=== PATIENT | male | born 1940 | race Caucasian/White ===

== ENCOUNTER 2018-05-31 10:34 | Outpatient (CLI) | payer MEDICARE, OTHER, SELFPAY ==
--- NOTE | 2018-05-31 11:25 | DI.RAD_ITS ---
SYMPTOM/DIAGNOSIS: LOW BACK PAIN, M54.5, LT HIP PAIN, M25.552 LUMBAR SPINE: There is a transition vertebral body at the lumbosacral junction. There appears to be a small rib on the left side of T 12. There is severe narrowing of the L 1-2 through L 3-4 disc and moderate narrowing of the L 4-5 disc space. Endplate osteophytes are seen at these levels as well. Facet degenerative changes are present, greatest at L 4-5. There is a minimal degenerative scoliosis. IMPRESSION: Severe degenerative disc changes from L 1-2 through L 3-4. PELVIS AND LEFT HIP: There is mild bilateral superior hip joint space narrowing and minimal jonatan- articular spurring. Mild spurring is also seen at the SI joints. IMPRESSION: Mild degenerative changes.
[2018-05-31 13:09] LABS: ALT 30 U/L (12-78); AST 21 U/L (15-37); Albumin 3.6 g/dL (3.4-5.0); Alkaline Phosphatase 69 U/L (46-116); Anion Gap 7.9 mmol/L (3-11); BUN 18 mg/dL (7-18); Bilirubin, Total 0.3 mg/dL (0.2-1.0); CO2 29.1 mmol/L (21.0-32.0); CREATININE 1.27 mg/dL (0.70-1.30); Calcium 9.7 mg/dL (8.5-10.1); Chloride 104 mmol/L (98-107); Cholesterol 149 mg/dL (50-200); Estimated GFR 54.99 (mL/min/1.73m2); Glucose 100 mg/dL (70-100); HDL Cholesterol 42 mg/dL (40-60); LDL CHOLESTEROL 77 mg/dL (<100); Potassium 4.4 mmol/L (3.5-5.1); Sodium 141 mmol/L (136-145); Total Protein 6.8 g/dL (6.4-8.2); Triglyceride 179 mg/dL (30-150)
== END 2018-05-31 10:54 ==
PROVIDERS: PCP Family Medicine; Visit Provider Family Medicine
DX: I10 Essential (primary) hypertension (principal); M54.5 Low back pain; M51.36 Other intervertebral disc degeneration, lumbar region; M25.552 Pain in left hip; M16.12 Unilateral primary osteoarthritis, left hip
CPT/HCPCS: 36415; 80053; 80061; 83721; 72110; 73502

== ENCOUNTER 2019-05-27 08:29 | Emergency (ER) | payer MEDICARE, OTHER, SELFPAY ==
[2019-05-27 08:35] VITALS: BP 135/90; PULSE 85; RESP 18; TEMP 36.6; O2SAT 94
--- NOTE | 2019-05-27 08:54 | DI.CT_ITS ---
EXAM: CT ABDOMEN PELVIS W CLINICAL HISTORY: abd pain, lower quadrants bilateral TECHNIQUE: Images were performed from the lung bases through the ischial tuberosities after IV and o ral contrast. COMPARISON: ABD PELVIS WITH CONTRAST from 11/12/2015 FINDINGS: There is again noted to be wall thickening in the sigmoid as well as stranding in the surrounding fa t. Numerous diverticula are again noted. Findings are consistent with diverticulitis, in a similar location to the previous exam. There is no evidence of obstruction. There is a normal quantity of s tool. The small bowel is unremarkable. The lungs bases show dependent changes. There is a question of a small hiatal hernia. The liver shows mild fatty infiltration. Stones are noted in the gallbla dder. There is no gallbladder distention or wall thickening. The spleen, pancreas and adrenals are unremarkable. Multiple bilateral renal cysts are again noted. There is a nonobstructing stone in th e mid left kidney. The prostate is enlarged. The bladder is only mildly distended and there may be some wall thickening. There has been a previous left inguinal hernia repair. Degenerative changes a re seen in the spine. IMPRESSION: Sigmoid diverticulitis. No evidence of abscess or perforation.
--- NOTE | 2019-05-27 08:56 | ED.GENADUL_ITS ---
Discharge Plan Disposition Patient Disposition: HOME Condition: Stable Discharge Details Chief Complaint: Abd Prob Clinical Impression: Diverticulitis of sigmoid colon Primary Care Provider: Delfina Lopes ED Provider: Nikita Brink Home Meds and New Rx's Prescriptions: New amoxicillin-pot clavulanate [Augmentin] 875-125 mg tablet 1 tab PO Q12H Qty: 20 RF: 0 Continued fortifeye 1 tab tablet PO DAILY AM RF: 0 aspirin [Aspir-81] 81 MG tablet,delayed release (DR/EC) 81 mg PO DAILY RF: 0 cholecalciferol (vitamin D3) 1,000 UNIT tablet 1,000 unit PO DAILY RF: 0 cyanocobalamin (vitamin B-12) [Vitamin B-12] 500 MCG tablet 500 mcg PO DAILY RF: 0 citalopram 20 mg tablet 20 mg PO DAILY Qty: 90 RF: 11 gabapentin 300 mg capsule 300 mg PO BID Qty: 180 RF: 12 lisinopril 5 mg tablet 5 mg PO DAILY Qty: 90 RF: 12 omeprazole 20 mg capsule,delayed release(DR/EC) 20 mg PO DAILY Qty: 90 RF: 4 trazodone 50 mg tablet 100 mg PO DAILY Qty: 180 RF: 11 sennosides [Senokot] 1 TAB tablet 2 tab PO DAILY RF: 0 Discharge Instructions Instructions: Diverticulitis (ED), Diverticulitis Diet (ED) Additional Instructions: Take your medication as scheduled and return immediately to the emergency department for any nausea vomiting, fever, worsening of conditions. You may continue to take [id number] acetaminophen as needed for any further pain and discomfort and keep your appointment with your primary care provider for follow-up next week. You may slowly advance her diet as tolerated but make sure that you stay well-hydrated during her illness. You may take probiotics [id number] to help with any secondary diarrhea due to the antibiotic. Just take as directed on packaging. Referrals: Delfina Lpoes MD, [place] [Primary Care Provider] - 05/31/19 (Keep your appointment as scheduled) Discharge Data Discharge Date/Time-TO BE ENTERED AT DEPARTURE: 05/27/19 12:05 Medical Decision Making Patient presenting to the emergency department chief complaint of abdominal pain. Patient reports for the past 3 days he has had colicky but persistent abdominal pain that seems to be bilateral in the lower quadrants. Patient denies any nausea vomiting or diarrhea but does state some slight constipation with last good bowel movement 2 days ago and only a slight bowel movement yesterday. Patient denies any fever chills or other associated symptoms. Physical exam is positive for significant tenderness to the abdomen in the lower quadrants more so on the right than the left otherwise normal active bowel sounds in all quadrants, no CVA tenderness, clear lung sounds normal cardiac exam. Plan to check labs and CT image. Family states that patient has difficulty with narcotics at times and oversedation so plan to give low-dose of ketorolac for pain control pending results. Review of labs show a mild leukocytosis otherwise unremarkable CBC, patient does have slightly increased creatinine which is not significantly elevated from baseline otherwise nondiagnostic CMP. UA does show moderate blood and trace leukocyte esterase but no significant elevation of WBCs and patient is asymptomatic as far as any urinary symptoms so while culture was indicated by lab I do not feel that patient needs treatment for UTI at this time. Review of CT imaging and radiologist interpretation does show sigmoid diverticulitis. Review of previous visit from 2016 shows similar episode. Patient initially placed upon Flagyl and Bactrim which he failed treatment and returned and needed to be admitted. I did discuss admission with patient and at this time he would prefer to go home. During admission patient was given Zosyn and did well on that. Due to that patient placed upon Augmentin for 10 days. Close return precautions were discussed. Given patient allergy to Keflex patient was observed in emergency department after initial dose to make sure that no reactio ns occurred. Patient remained stable with no reaction so patient discharged. Patient states that he has a normally scheduled appointment with his primary care provider on Thursday which I feel is appropriate for follow-up and patient and family seem reasonable to return for worsening symptoms. After discussion of diagnosis and plan of care patient has no further needs, questions, or concerns and states clear understanding to return to the emergency department for any worsening symptoms. HPI General Mode of arrival: ambulatory . Date/Time Provider Initiated Documentation: 05/27/19 08:33 . Limitations to Documentation: no limitations . Information obtained by: patient and family . History of Present Illness 78 year old M presents to the emergency department with the chief complaint of Abdominal pain, described as severe, with intensity rated at 9. Quality is described as sharp, and is localized to the abdomen. Patient started experiencing this day(s) (3) and it has been constant and colicky. No relieving factors improve symptom(s), No exacerbating factors reported . Patient notes no other symptoms.. Related Data Home Medications Medication Instructions Recorded Confirmed aspirin [Aspir-81] 81 mg PO DAILY 11/26/12 05/27/19 cholecalciferol (vitamin D3) 1,000 unit PO DAILY 11/26/12 05/27/19 sennosides [Senokot] 2 tab PO DAILY 12/05/13 05/27/19 cyanocobalamin (vitamin B-12) 500 mcg PO DAILY 07/02/15 05/27/19 [Vitamin B-12] fortifeye PO DAILY AM 05/31/18 03/29/19 citalopram 20 mg tablet 20 mg PO DAILY #90 tab-cap 08/30/18 05/27/19 gabapentin 300 mg capsule 300 mg PO BID #180 tab-cap 08/30/18 05/27/19 lisinopril 5 mg tablet 5 mg PO DAILY #90 tab-cap 08/30/18 05/27/19 omeprazole 20 mg capsule,delayed 20 mg PO DAILY #90 tab 08/30/18 05/27/19 release trazodone 50 mg tablet 100 mg PO DAILY #180 tab-cap 08/30/18 05/27/19 amoxicillin-pot clavulanate 1 tab PO Q12H #20 tab 05/27/19 [Augmentin] Previous Rx's Medication Instructions Recorded citalopram 20 mg tablet 20 mg PO DAILY #90 tab-cap 08/30/18 gabapentin 300 mg capsule 300 mg PO BID #180 tab-cap 08/30/18 lisinopril 5 mg tablet 5 mg PO DAILY #90 tab-cap 08/30/18 omeprazole 20 mg capsule,delayed 20 mg PO DAILY #90 tab 08/30/18 release trazodone 50 mg tablet 100 mg PO DAILY #180 tab-cap 08/30/18 amoxicillin-pot clavulanate 1 tab PO Q12H #20 tab 05/27/19 [Augmentin] Allergies Allergy/AdvReac Type Severity Reaction Status Date / Time ciprofloxacin Allergy Intermediate Verified 05/27/19 08:38 cephalexin Allergy Mild Verified 05/27/19 08:38 ciclopirox Allergy Mild Verified 05/27/19 08:38 methylprednisolone Allergy Mild SKIN RASH Verified 05/27/19 08:38 oxaprozin Allergy Mild Verified 05/27/19 08:38 phenazopyridine Allergy Mild Verified 05/27/19 08:38 tamsulosin Allergy Mild Verified 05/27/19 08:38 hydrocortisone Allergy Unknown SKIN RASH Verified 05/27/19 08:38 latex Allergy Unknown Verified 05/27/19 08:38 Beta-Blockers AdvReac Unknown DEPRESSION Verified 05/27/19 08:38 (Beta-Adrenergic Bloc lanolin AdvReac Unknown Verified 05/27/19 08:38 tetracycline AdvReac Unknown YEAST Verified 05/27/19 08:38 INFECTIONS fluconazole AdvReac blisters Verified 05/27/19 08:38 General Stated Complaint: Abd Prob CARMITA: 3 Review of Systems Constitutional Constitutional: Denies chills, Denies fever(s) and Reports poor appetite Cardiovascular Cardiovascular: Denies chest pain and Denies dyspnea Respiratory Respiratory: Denies dyspnea Gastrointestinal Gastrointestinal: Reports as per HPI, Reports abdominal pain, Denies melena, Denies change in bowel habits, Reports constipation, Denies diarrhea, Denies nausea and Denies vomiting Genitourinary Genitourinary: Denies hematuria and Reports urinary frequency (At baseline) Integumentary/Breasts Skin/Breast: Denies rash PFSH Medical History Acute prostatitis (Resolved) elevated PSA-now normalized Anemia (Resolved) 07/09/96 Anxiety (Chronic) Cataract (Resolved) 02/26/15 Chest pain (Resolved) neg MPI 06/16 Dermatophytosis (Chronic) BX-neg. fungal; + spongiotic process + esinophils Diverticulosis of colon without diverticulitis (Chronic) SIGMOID (DR. ORQUIDEA MICHAEL) 12/29/11 Essential hypertension (Chronic 07/18/13) Hematuria (Resolved) unspecified renal cysts per CT; s/p cysto Insomnia, unspecified (Chronic 05/25/17) Intestinal obstruction (Resolved) Knee pain (Resolved) 10/01/15 Meralgia paraesthetica (Resolved) Peptic reflux disease (Chronic) H.H. Pneumonia due to infectious organism (Resolved) 08/31/17 unspecified unilaterality, unspecified part of lung Rib pain (Resolved) 07/09/05 after episode w/bull Vertigo (Resolved) Vitamin D deficiency (Resolved) 09/26/08 Surgical History Repair of inguinal hernia LEFT S/P inguinal hernia repair (Resolved) left Family History Mother , 93 Essential hypertension Father , 88 Heart disease Myocardial infarction Sister Breast cancer Paternal Grandfather Stroke Maternal Grandmother , OLD AGE at age 85. No problems noted. Paternal Grandmother Stroke Son No problems noted. Son No problems noted. Daughter No problems noted. Daughter No problems noted. Daughter No problems noted. Daughter No problems noted. Social History Smoking/Tobacco Use Status: Never Alcohol Intake: current Alcohol Intake frequency: a few times a month Drug use: Never Substance use type: does not use Caregiver/Support person: Yes Household members: spouse Housing: house Communication Needs: Language Barriers Do you need help understanding health information?: Always Pets and animals: No Sexually active: Yes Do you think of yourself as: straight/heterosexual Current gender identity: male What is your relationship status?: How often do you talk on the phone with friends or family?: never How often do you get together with friends or relatives?: once per week How often do you attend rastafarian or restoration services?: 4 or more times per year Do you belong to any clubs or organized social groups?: yes Panel score (0-1 are the most socially isolated patients): 3 What type of physical activity do you participate in: decline to answer Duration: 15-30 minutes/day Frequency: daily Vilma/Taoist: Orthodox Special vilma needs: No Seatbelt use: sometimes Helmet use: Yes Helmet use: always Drive intox or ride w/intox dinkey driver: No Do you feel safe at home: Yes Do you feel safe in your relationship?: Yes Exam Const General: cooperative Orientation: alert, awake and oriented x3 Resp Effort & Inspection: normal respiratory effort and able to speak in complete sentences Auscultation: clear to auscultation bilaterally Cardio Rate: regular rate Rhythm: regular rhythm Heart Sounds: S1 normal and S2 normal GI Palpation: soft, no hepatosplenomegaly, not firm, no guarding, no masses, no pulsatile masses, not rigid, no splenomegaly and tender in the RLQ Auscultation: normal bowel sounds Back/Spine/Pelvis Back: no CVA tenderness Neuro General: alert, awake, oriented x3, gait normal and moves all extremities Course Vital Signs Vital signs: Vital Signs Temperature 36.6 C 05/27/19 08:35 Pulse 85 05/27/19 08:35 Respiratory Rate 18 05/27/19 08:35 Blood Pressure 135/90 05/27/19 08:35 Pulse Oximetry 94 L 05/27/19 08:35 Temperature 36.6 C 05/27/19 08:35 Temperature Source Temporal Artery Scan 05/27/19 08:35 Pulse 85 05/27/19 08:35 Respiratory Rate 18 05/27/19 08:35 Respiratory Effort Non-Labored 05/27/19 08:35 Blood Pressure 135/90 05/27/19 08:35 Pulse Oximetry 94 L 05/27/19 08:35 Oxygen Delivery Method Room Air 05/27/19 08:35 Oxygen Flow Rate 0 05/27/19 08:35 Pain Level 9 05/27/19 08:35
[2019-05-27] MEDS: Omnipaque 350 MG/ML 50 ML BTL PO (08:59)
[2019-05-27] MEDS: Breeza Beverage 473 ML BTL PO ×2 (08:59→09:00)
[2019-05-27] MEDS: Ketorolac 15 MG/ML VIAL IVP (09:17)
[2019-05-27 09:26] LABS: Abs Immature Grans 0.04 k/cumm (0.0-0.09); Absolute Basophil Count 0.01 k/cumm (0.0-0.2); Absolute Lymphocyte Count 1.04 k/cumm (1.2-3.4); Absolute Monocyte Count 0.76 k/cumm (0.11-0.7); Basophils % 0.1; HCT 48.3 % (40.0-50.0); Immature Grans % 0.3; Lymphocytes % 9.1; Mean Corp. HGB Concentration 33.1 g/dL (32.0-36.0); Mean Corpuscular Hemoglobin 28.7 pg (27.0-33.0); Mean Corpuscular Volume 86.6 fL (80-95); Mean Platelet Volume 9.7 fL (8.0-11.0); Monocytes % 6.6; Neutrophils % 82.9; Platelet Count 259 x1000/uL (130-400); RBC 5.58 m/cumm (4.50-6.00); RBC Distribution Width 14.7 % (11.8-14.1); White Blood Cell Count 11.47 k/cumm (4.4-10.8)
[2019-05-27 09:28] LABS: Absolute Eosinophil Count 0.11 k/cumm (0.0-0.7); Absolute Neutrophil Count 9.51 k/cumm (1.2-6.7)
[2019-05-27 09:35] LABS: ALT 25 U/L (16-63); AST 15 U/L (15-37); Albumin 3.7 g/dL (3.4-5.0); Alkaline Phosphatase 77 U/L (46-116); Anion Gap 10.2 mmol/L (3-11); BUN 17 mg/dL (7-18); Bilirubin, Total 0.8 mg/dL (0.2-1.0); CO2 25.8 mmol/L (21.0-32.0); CREATININE 1.37 mg/dL (0.70-1.30); Calcium 9.4 mg/dL (8.5-10.1); Chloride 103 mmol/L (98-107); Estimated GFR 50.25 (mL/min/1.73m2); Glucose 107 mg/dL (70-100); Lipase 103 U/L (73-393); Sodium 139 mmol/L (136-145); Total Protein 7.4 g/dL (6.4-8.2)
[2019-05-27 09:39] LABS: Bilirubin Negative (Negative); Blood Moderate (Negative); Clarity Clear (Clear); Glucose Negative (Negative); Ketones Negative (Negative); Leukocyte Esterase Trace (Negative); Nitrite Negative (Negative); Urobilinogen 0.2 EU/dL (Up TO 0.2)
[2019-05-27 09:53] LABS: Epithelial Cells Negative HPF (Negative); Other Cells Few Yeast (Negative); WBC 0-2 HPF (0-5)
[2019-05-27 09:54] LABS: Bacteria Rare HPF (Negative); C & S Indicated? Yes; Casts Negative LPF (Negative); Crystals Negative HPF (Negative); Mucus Trace (Negative)
[2019-05-27] MEDS: Omnipaque 350 MG/ML 100 ML BTL IJ (10:39)
[2019-05-27 10:47] VITALS: BP 104/69; PULSE 70; TEMP 37; O2SAT 98
[2019-05-27] MEDS: Amoxicillin 875/Clav. 125 TAB PO (11:36)
[2019-05-27 12:03] VITALS: BP 134/85; PULSE 72; RESP 17; TEMP 36.6; O2SAT 93
== END 2019-05-27 12:05 | disposition home or self-care (01) ==
PROVIDERS: Emergency Provider Nurse Practitioner Family; PCP Family Medicine
DX: K57.32 Diverticulitis of large intestine without perforation or abscess without bleeding (principal)
CPT/HCPCS: 80053; 83690; 96375; 99285; 74177; 81003; 81015; 85025; 87086; 99284; J1885; J3490; Q9967

== ENCOUNTER 2019-05-29 12:29 | Inpatient (IN) | payer MEDICARE, OTHER, SELFPAY ==
[2019-05-29 12:33] VITALS: BP 129/88; PULSE 81; RESP 18; TEMP 36.7; O2SAT 95
[2019-05-29 12:49] LABS: Lactate 0.9 mmol/L (0.6-1.4)
[2019-05-29 12:57] LABS: Abs Immature Grans 0.05 k/cumm (0.0-0.09); Absolute Basophil Count 0.01 k/cumm (0.0-0.2); Absolute Eosinophil Count 0.11 k/cumm (0.0-0.7); Absolute Lymphocyte Count 1.75 k/cumm (1.2-3.4); Absolute Monocyte Count 0.76 k/cumm (0.11-0.7); Absolute Neutrophil Count 8.69 k/cumm (1.2-6.7); Basophils % 0.1; HCT 52.1 % (40.0-50.0); Immature Grans % 0.4; Lymphocytes % 15.4; Mean Corp. HGB Concentration 32.6 g/dL (32.0-36.0); Mean Corpuscular Hemoglobin 28.7 pg (27.0-33.0); Mean Platelet Volume 9.7 fL (8.0-11.0); Monocytes % 6.7; Neutrophils % 76.4; Platelet Count 261 x1000/uL (130-400); RBC 5.92 m/cumm (4.50-6.00); White Blood Cell Count 11.37 k/cumm (4.4-10.8)
[2019-05-29 13:20] LABS: ALT 23 U/L (16-63); AST 24 U/L (15-37); Albumin 3.7 g/dL (3.4-5.0); Alkaline Phosphatase 77 U/L (46-116); BUN 13 mg/dL (7-18); CREATININE 1.39 mg/dL (0.70-1.30); Calcium 9.9 mg/dL (8.5-10.1); Chloride 102 mmol/L (98-107); Estimated GFR 49.42 (mL/min/1.73m2); Glucose 112 mg/dL (70-100); Sodium 139 mmol/L (136-145); Total Protein 8.3 g/dL (6.4-8.2)
[2019-05-29] MEDS: Ketorolac 15 MG/ML VIAL IVP (13:29)
[2019-05-29] MEDS: Normal Saline 1,000 ML 125 ML IV ×2 (13:29→16:39)
--- NOTE | 2019-05-29 14:36 | ED.GENADUL_ITS ---
Discharge Plan Disposition Patient Disposition: [facility] INPATIENT Condition: Improving Discharge Details Chief Complaint: Abd Prob Clinical Impression: Sigmoid diverticulitis Admit Date/Time: 05/29/19 14:48 Admit Provider: Elvie Bustillos Attending Provider: Elvie Bustillos Primary Care Provider: Delfina Lopes ED Provider: Nikita Brink Discharge Instructions Activity:: Activity as Tolerated Equipment/Supplies:: No Equipment Needed Diet:: As Tolerated Discharge Orders Discharge Orders: Discharge Order (Routine); Ordered 05/31/19 Ordered By: Tracy Oswald Discharge Data Discharge Date/Time-TO BE ENTERED AT DEPARTURE: 05/29/19 16:04 Medical Decision Making Patient presenting to the emergency department for chief complaint of abdominal pain. Patient was seen by myself and diagnosed with diverticulitis 2 days ago and was placed upon Augmentin. Patient states no worsening of symptoms but that he is just not getting any better and continued to have significant amount of abdominal pain. Patient has used acetaminophen for pain control which has not helped at all. Patient denies any fever chills, vomiting. He does state some associated diarrhea. Patient continues to have diffuse abdominal pain with some midline tenderness, normal active bowel sounds, nontoxic well in appearance without hypotension and is afebrile. Plan to recheck labs but at this time given the patient states no worsening of symptoms we will hold off on reimaging. Pending results patient given IV fluids and Toradol due to the fact that family states patient does not tolerate narcotics well. Review of labs show a continued leukocytosis, mild increase in creatinine. Labs are otherwise nondiagnostic. Patient reassessed and states slight improvement of discomfort. After discussion of plan with patient and family they are now agreeable to admission whereas 2 days ago they wanted to try outpatient therapy. Patient started on Zosyn as this is been effective in the past and hospitalist was called. Spoke with hospitalist in regards to admission which Dr. Bustillos agreed to have patient admitted for further IV antibiotics and observation to ensure that he improves.. HPI General Mode of arrival: ambulatory . Date/Time Provider Initiated Documentation: 05/29/19 12:30 . Limitations to Documentation: no limitations . Information obtained by: patient, family and RN notes reviewed . History of Present Illness 78 year old M presents to the emergency department with the chief complaint of Abdominal pain, described as moderate, with intensity rated at 8. Quality is described as sharp, and is localized to the abdomen. Patient started experiencing this day(s) (3) and it has been constant. No relieving factors improve symptom(s), Patient did receive the following treatments prior to arrival, other (Acetaminophen) Related Data Home Medications Medication Instructions Recorded Confirmed aspirin [Aspir-81] 81 mg PO DAILY 11/26/12 05/29/19 cholecalciferol (vitamin D3) 1,000 unit PO DAILY 11/26/12 05/29/19 sennosides [Senokot] 2 tab PO DAILY 12/05/13 05/29/19 cyanocobalamin (vitamin B-12) 500 mcg PO DAILY 07/02/15 05/29/19 [Vitamin B-12] fortifeye PO DAILY AM 05/31/18 03/29/19 citalopram 20 mg tablet 20 mg PO DAILY #90 tab-cap 08/30/18 05/29/19 gabapentin 300 mg capsule 300 mg PO BID #180 tab-cap 08/30/18 05/29/19 lisinopril 5 mg tablet 5 mg PO DAILY #90 tab-cap 08/30/18 05/29/19 omeprazole 20 mg capsule,delayed 20 mg PO DAILY #90 tab 08/30/18 05/29/19 release trazodone 50 mg tablet 100 mg PO DAILY #180 tab-cap 08/30/18 05/29/19 acidophilus-pectin, citrus 1 cap PO TID #30 tab 05/31/19 amoxicillin-pot clavulanate 1 tab PO Q12H #4 tab 05/31/19 [Augmentin] magnesium oxide 400 mg PO DAILY@1000 #7 tab 05/31/19 phenyleph-min oil-petrolatum 0 g CA BID PRN PRN #0 g 05/31/19 [Preparation H] Previous Rx's Medication Instructions Recorded citalopram 20 mg tablet 20 mg PO DAILY #90 tab-cap 08/30/18 gabapentin 300 mg capsule 300 mg PO BID #180 tab-cap 08/30/18 lisinopril 5 mg tablet 5 mg PO DAILY #90 tab-cap 08/30/18 omeprazole 20 mg capsule,delayed 20 mg PO DAILY #90 tab 08/30/18 release trazodone 50 mg tablet 100 mg PO DAILY #180 tab-cap 08/30/18 acidophilus-pectin, citrus 1 cap PO TID #30 tab 05/31/19 amoxicillin-pot clavulanate 1 tab PO Q12H #4 tab 05/31/19 [Augmentin] magnesium oxide 400 mg PO DAILY@1000 #7 tab 05/31/19 phenyleph-min oil-petrolatum 0 g CA BID PRN PRN #0 g 05/31/19 [Preparation H] Allergies Allergy/AdvReac Type Severity Reaction Status Date / Time ciprofloxacin Allergy Intermediate Verified 05/29/19 13:32 cephalexin Allergy Mild Verified 05/29/19 13:32 ciclopirox Allergy Mild Verified 05/29/19 13:32 methylprednisolone Allergy Mild SKIN RASH Verified 05/29/19 13:32 oxaprozin Allergy Mild Verified 05/29/19 13:32 phenazopyridine Allergy Mild Verified 05/29/19 13:32 tamsulosin Allergy Mild Verified 05/29/19 13:32 hydrocortisone Allergy Unknown SKIN RASH Verified 05/29/19 13:32 latex Allergy Unknown Verified 05/29/19 13:32 Beta-Blockers AdvReac Unknown DEPRESSION Verified 05/29/19 13:32 (Beta-Adrenergic Bloc lanolin AdvReac Unknown Verified 05/29/19 13:32 tetracycline AdvReac Unknown YEAST Verified 05/29/19 13:32 INFECTIONS fluconazole AdvReac blisters Verified 05/29/19 13:32 General Stated Complaint: Abd Prob CARMITA: 3 Review of Systems Constitutional Constitutional: Denies chills, Denies fever(s) and Reports poor appetite Cardiovascular Cardiovascular: Denies chest pain and Denies dyspnea Respiratory Respiratory: Denies cough and Denies dyspnea Gastrointestinal Gastrointestinal: Reports as per HPI, Reports abdominal pain, Denies melena, Denies change in bowel habits, Denies constipation, Reports diarrhea, Reports nausea and Denies vomiting Genitourinary Genitourinary: Denies dysuria Integumentary/Breasts Skin/Breast: Denies rash PFSH Medical History Acute prostatitis (Resolved) elevated PSA-now normalized Anemia (Resolved) 07/09/96 Anxiety (Chronic) Cataract (Resolved) 02/26/15 Chest pain (Resolved) neg MPI 06/16 Dermatophytosis (Chronic) BX-neg. fungal; + spongiotic process + esinophils Diverticulosis of colon without diverticulitis (Chronic) SIGMOID (DR. ORQUIDEA MICHAEL) 12/29/11 Essential hypertension (Chronic 07/18/13) Hematuria (Resolved) unspecified renal cysts per CT; s/p cysto Insomnia, unspecified (Chronic 05/25/17) Intestinal obstruction (Resolved) Knee pain (Resolved) 10/01/15 Meralgia paraesthetica (Resolved) Peptic reflux disease (Chronic) H.H. Pneumonia due to infectious organism (Resolved) 08/31/17 unspecified unilaterality, unspecified part of lung Rib pain (Resolved) 07/09/05 after episode w/bull Sigmoid diverticulitis (Acute) Vertigo (Resolved) Vitamin D deficiency (Resolved) 09/26/08 Surgical History History of appendectomy (Chronic) Repair of inguinal hernia LEFT S/P inguinal hernia repair (Resolved) left Family History Mother , 93 Essential hypertension Father , 88 Heart disease Myocardial infarction Sister Breast cancer Paternal Grandfather Stroke Maternal Grandmother , OLD AGE at age 85. No problems noted. Paternal Grandmother Stroke Son No problems noted. Son No problems noted. Daughter No problems noted. Daughter No problems noted. Daughter No problems noted. Daughter No problems noted. Social History Smoking/Tobacco Use Status: Never Alcohol Intake: current Alcohol Intake frequency: a few times a month Drug use: Never Substance use type: does not use Caregiver/Support person: Yes Household members: spouse Housing: house Communication Needs: Language Barriers Do you need help understanding health information?: Always Pets and animals: No Sexually active: Yes Do you think of yourself as: straight/heterosexual Current gender identity: male What is your relationship status?: How often do you talk on the phone with friends or family?: never How often do you get together with friends or relatives?: once per week How often do you attend gnosticist or restorationism services?: 4 or more times per year Do you belong to any clubs or organized social groups?: yes Panel score (0-1 are the most socially isolated patients): 3 What type of physical activity do you participate in: decline to answer Duration: 15-30 minutes/day Frequency: daily Vilma/Shinto: Jain Special vilma needs: No Seatbelt use: sometimes Helmet use: Yes Helmet use: always Drive intox or ride w/intox gas truck driver: No Do you feel safe at home: Yes Do you feel safe in your relationship?: Yes Exam Const General: cooperative Orientation: alert, awake and oriented x3 Resp Effort & Inspection: normal respiratory effort and able to speak in complete sentences Auscultation: clear to auscultation bilaterally Cardio Rate: regular rate Rhythm: regular rhythm Heart Sounds: S1 normal and S2 normal GI Palpation: soft, no hepatosplenomegaly, not firm, no guarding, no masses, no pulsatile masses, not rigid, no splenomegaly and tender (Diffuse with some focal to inferior umbilicus) not at McBurney's point, Saldaña's sign negative and Rovsing's sign negative Auscultation: normal bowel sounds Back/Spine/Pelvis Back: no CVA tenderness Neuro General: alert, awake, oriented x3, gait normal and moves all extremities Course Vital Signs Vital signs: Vital Signs Temperature 36.7 C 05/29/19 12:33 Pulse 81 05/29/19 12:33 Respiratory Rate 18 05/29/19 12:33 Blood Pressure 129/88 05/29/19 12:33 Pulse Oximetry 95 05/29/19 12:33 Temperature 36.7 C 05/29/19 12:33 Temperature Source Temporal Artery Scan 05/29/19 12:33 Pulse 81 05/29/19 12:33 Respiratory Rate 18 05/29/19 12:33 Respiratory Effort Non-Labored 05/29/19 12:33 Blood Pressure 129/88 05/29/19 12:33 Pulse Oximetry 95 05/29/19 12:33 Oxygen Delivery Method Room Air 05/29/19 12:33 Oxygen Flow Rate 0 05/29/19 12:33 Pain Level 9 05/29/19 13:39 Lab/Test Results Lab/Test Results: Laboratory Tests Range/Units 05/29/19 05/29/19 05/29/19 12:40 12:40 12:40 WBC (4.4-10.8) k/cumm 11.37 H RBC (4.50-6.00) m/cumm 5.92 Hgb (13.5-17.5) g/dL 17.0 Hct (40.0-50.0) % 52.1 H MCV (80-95) fL 88.0 MCH (27.0-33.0) pg 28.7 MCHC (32.0-36.0) g/dL 32.6 RDW (11.8-14.1) % 15.0 H Plt Count (130-400) x1000/uL 261 MPV (8.0-11.0) fL 9.7 Immature Gran % 0.4 Neutrophils % 76.4 Lymphocytes % 15.4 Monocytes % 6.7 Eosinophils % 1.0 Basophils % 0.1 Absolute Neutrophils (1.2-6.7) k/cumm 8.69 H Absolute Lymphocytes (1.2-3.4) k/cumm 1.75 Absolute Monocytes (0.11-0.7) k/cumm 0.76 H Absolute Eosinophils (0.0-0.7) k/cumm 0.11 Absolute Basophils (0.0-0.2) k/cumm 0.01 Sodium (136-145) mmol/L 139 Potassium (3.5-5.1) mmol/L 5.0 D Chloride (98-107) mmol/L 102 Carbon Dioxide (21.0-32.0) mmol/L 27.0 Anion Gap (3-11) mmol/L 10.0 BUN (7-18) mg/dL 13 Creatinine (0.70-1.30) mg/dL 1.39 H Estimated GFR/1.73 m2 (mL/min/1.73m2) 49.42 Glucose (70-100) mg/dL 112 H Lactate (0.6-1.4) mmol/L 0.9 Calcium (8.5-10.1) mg/dL 9.9 Total Bilirubin (0.2-1.0) mg/dL 1.0 AST (15-37) U/L 24 ALT (16-63) U/L 23 Alkaline Phosphatase (46-116) U/L 77 Total Protein (6.4-8.2) g/dL 8.3 H Albumin (3.4-5.0) g/dL 3.7
[2019-05-29] MEDS: PIPERACILLIN/TAZO 3.375 GM in Normal Saline 50 ML IVPB ×2 (15:11→20:04)
--- NOTE | 2019-05-29 15:14 | NUR.NOTE ---
Nursing Note:hospitalist at bedside.
[2019-05-29 15:27] VITALS: BP 101/64; PULSE 74; RESP 16; TEMP 36.9; O2SAT 97
--- NOTE | 2019-05-29 15:29 | W.PM.HP.N ---
Date of service: 05/29/19 Time of Service: 16:05 Assessment and Plan Assessment and plan (1) Sigmoid diverticulitis: Start date: 05/29/19 Start time: 16:36 Status: Acute Assessment and plan: Imaging reveals sigmoid diverticulits. Failed augmentin. Admitted for IV antbx. Started on zosyn Monitor Labs. Medication for n/v Heart healthy clear liquid diet advance as tolerated. (2) Essential hypertension: Start date: 05/29/19 Start time: 16:37 Status: Chronic Assessment and plan: Continue Lisinopril (3) Peptic reflux disease: Start date: 05/29/19 Start time: 16:38 Status: Chronic Assessment and plan: omeprazole 20mg continue (4) DVT prophylaxis: Start date: 05/29/19 Start time: 16:38 Status: Acute Assessment and plan: Enoxaparin 40 mg Subcu. Above case discussed with Dr. Bustillos who is in agreement. History of Present Illness History of Present Illness Chief Complaint: DIVERTICULITIS Narrative: 78 y.o M with PMHx significant for HTN, Peptic disease and anxiety; presents to [facility] today after being seen Sunday 05/27 and diagnosed with diverticulitis. Thursday he was given augmentin and discharged home. Today he returns for pain that has not been relieved after 2 days of augmentin. Pain is a 5 on 0-10 scale. Not worse than thursday but not better. He is being admitted to [facility] for further management. CT in the ED on 05/27 reveals Sigmoid diverticulitis. Labs today with mild leukocytosis and elevated creatinine. He is having diarrhea with nausea and vomiting; but afebrile. BM does not make pain better and pain is not worsened by food. He does endorse frequency, no known history of bph. He denies CP, SOB. Review of Systems Review of Systems ROS Unobtainable: All systems reviewed & are unremarkable except as noted in HPI and below [facility] Medical History (Updated 05/29/19 @ 16:36 by Lilo Germain NP) Acute prostatitis (Resolved) elevated PSA-now normalized Anemia (Resolved) 07/09/96 Anxiety (Chronic) Cataract (Resolved) 02/26/15 Chest pain (Resolved) neg MPI 06/16 Dermatophytosis (Chronic) BX-neg. fungal; + spongiotic process + esinophils Diverticulosis of colon without diverticulitis (Chronic) SIGMOID (DR. ORQUIDEA MICHAEL) 12/29/11 Essential hypertension (Chronic 07/18/13) Hematuria (Resolved) unspecified renal cysts per CT; s/p cysto Insomnia, unspecified (Chronic 05/25/17) Intestinal obstruction (Resolved) Knee pain (Resolved) 10/01/15 Meralgia paraesthetica (Resolved) Peptic reflux disease (Chronic) H.H. Pneumonia due to infectious organism (Resolved) 08/31/17 unspecified unilaterality, unspecified part of lung Rib pain (Resolved) 07/09/05 after episode w/bull Sigmoid diverticulitis (Acute) Vertigo (Resolved) Vitamin D deficiency (Resolved) 09/26/08 Surgical History (Updated 05/29/19 @ 16:15 by Lilo Germain NP) History of appendectomy (Chronic) Repair of inguinal hernia LEFT S/P inguinal hernia repair (Resolved) left Social History Smoking/Tobacco Use Status: Never Alcohol Intake: current Alcohol Intake frequency: a few times a month Drug use: Never Substance use type: does not use Caregiver/Support person: Yes Household members: spouse Housing: house Communication Needs: Language Barriers Do you need help understanding health information?: Always Pets and animals: No Sexually active: Yes Do you think of yourself as: straight/heterosexual Current gender identity: male What is your relationship status?: How often do you talk on the phone with friends or family?: never How often do you get together with friends or relatives?: once per week How often do you attend pentecostal or bahai services?: 4 or more times per year Do you belong to any clubs or organized social groups?: yes Panel score (0-1 are the most socially isolated patients): 3 What type of physical activity do you participate in: decline to answer Duration: 15-30 minutes/day Frequency: daily Vilma/Holiness: Oriental Orthodox Special vilma needs: No Seatbelt use: sometimes Helmet use: Yes Helmet use: always Drive intox or ride w/intox driver messenger: No Do you feel safe at home: Yes Do you feel safe in your relationship?: Yes Meds Home Medications and Allergies Home Medications Medication Instructions Recorded Confirmed Type aspirin [Aspir-81] 81 mg PO DAILY 11/26/12 05/29/19 History cholecalciferol (vitamin D3) 1,000 unit PO DAILY 11/26/12 05/29/19 History sennosides [Senokot] 2 tab PO DAILY 12/05/13 05/29/19 History cyanocobalamin (vitamin B-12) 500 mcg PO DAILY 07/02/15 05/29/19 History [Vitamin B-12] fortifeye PO DAILY AM 05/31/18 03/29/19 History citalopram 20 mg tablet 20 mg PO DAILY #90 tab-cap 08/30/18 05/29/19 Rx gabapentin 300 mg capsule 300 mg PO BID #180 tab-cap 08/30/18 05/29/19 Rx lisinopril 5 mg tablet 5 mg PO DAILY #90 tab-cap 08/30/18 05/29/19 Rx omeprazole 20 mg capsule,delayed 20 mg PO DAILY #90 tab 08/30/18 05/29/19 Rx release trazodone 50 mg tablet 100 mg PO DAILY #180 tab-cap 08/30/18 05/29/19 Rx amoxicillin-pot clavulanate 1 tab PO Q12H #20 tab 05/27/19 05/29/19 Rx [Augmentin] Allergies Allergy/AdvReac Type Severity Reaction Status Date / Time ciprofloxacin Allergy Intermediate Verified 05/29/19 13:32 cephalexin Allergy Mild Verified 05/29/19 13:32 ciclopirox Allergy Mild Verified 05/29/19 13:32 methylprednisolone Allergy Mild SKIN RASH Verified 05/29/19 13:32 oxaprozin Allergy Mild Verified 05/29/19 13:32 phenazopyridine Allergy Mild Verified 05/29/19 13:32 tamsulosin Allergy Mild Verified 05/29/19 13:32 hydrocortisone Allergy Unknown SKIN RASH Verified 05/29/19 13:32 latex Allergy Unknown Verified 05/29/19 13:32 Beta-Blockers AdvReac Unknown DEPRESSION Verified 05/29/19 13:32 (Beta-Adrenergic Bloc lanolin AdvReac Unknown Verified 05/29/19 13:32 tetracycline AdvReac Unknown YEAST Verified 05/29/19 13:32 INFECTIONS fluconazole AdvReac blisters Verified 05/29/19 13:32 Exam Narrative Exam Narrative: Const: Pleasant younger looking then stated age gentlemen, cooperative, laying on stretcher. NAD HENMT: MMM, normalcephalic EYES: PERRLA EOMI NECK: no lymphedema, no goiter, no JVD Chest: symmetrical, normal inspection Resp: even, unlabored respirations, LSCTAB. Able to speak full sentences. Cardio: No murmur appreciated, S1 S2 regular rate and rhythm GI: BS hypoactive, pain to bilateral lower quads with palpation. : defered Back/SPine: normal curvature, no CVA tenderness Skin: no rashes, lesions, wounds. Neuro: AAOx 3, normal cognition, normal gait Extrem: No clubbing, edema, or cyanosis. FROM of all extremities Psych: normal mood and affect Results Labs Result diagrams: 05/29/19 12:40 05/29/19 12:40 Labs: Laboratory Results - last 24 hr 05/29/19 05/29/19 05/29/19 12:40 12:40 12:40 WBC 11.37 H RBC 5.92 Hgb 17.0 Hct 52.1 H MCV 88.0 MCH 28.7 MCHC 32.6 RDW 15.0 H Plt Count 261 MPV 9.7 Immature Gran % 0.4 Neutrophils % 76.4 Lymphocytes % 15.4 Monocytes % 6.7 Eosinophils % 1.0 Basophils % 0.1 Absolute Neutrophils 8.69 H Absolute Lymphocytes 1.75 Absolute Monocytes 0.76 H Absolute Eosinophils 0.11 Absolute Basophils 0.01 Sodium 139 Potassium 5.0 D Chloride 102 Carbon Dioxide 27.0 Anion Gap 10.0 BUN 13 Creatinine 1.39 H Estimated GFR/1.73 m2 49.42 Glucose 112 H Lactate 0.9 Calcium 9.9 Total Bilirubin 1.0 AST 24 ALT 23 Alkaline Phosphatase 77 Total Protein 8.3 H Albumin 3.7 Last Vital Signs Temp 36.9 C 05/29/19 15:27 Pulse 74 05/29/19 15:27 Resp 16 05/29/19 15:27 BP 101/64 05/29/19 15:27 Pulse Ox 97 05/29/19 15:27
[2019-05-29 16:05] VITALS: BP 105/65; PULSE 65; RESP 16; O2SAT 95
[2019-05-29 16:23] VITALS: BP 120/74; PULSE 69; RESP 18; TEMP 36.8; O2SAT 93
[2019-05-29] MEDS: Enoxaparin 40 MG/0.4 ML SYR SC (16:42)
[2019-05-29 16:44] VITALS: BP 120/70; PULSE 69; RESP 18; TEMP 36.8; O2SAT 93
[2019-05-29 19:37] VITALS: BP 110/75; PULSE 62; RESP 18; TEMP 36.8; O2SAT 94
[2019-05-29] MEDS: Gabapentin 300 MG CAP PO (20:03)
[2019-05-29] MEDS: traZODone 50 MG TAB 100 MG PO (21:44)
[2019-05-30 00:13] VITALS: BP 98/60; PULSE 66; RESP 17; TEMP 37; O2SAT 94
[2019-05-30] MEDS: Normal Saline 1,000 ML 125 ML IV ×2 (00:45→10:13)
[2019-05-30] MEDS: PIPERACILLIN/TAZO 3.375 GM in Normal Saline 50 ML IVPB ×4 (01:22→19:16)
[2019-05-30 04:00] VITALS: BP 109/69; PULSE 63; RESP 17; TEMP 36.6; O2SAT 95
[2019-05-30 07:11] LABS: Abs Immature Grans 0.03 k/cumm (0.0-0.09); Absolute Basophil Count 0.01 k/cumm (0.0-0.2); Absolute Eosinophil Count 0.14 k/cumm (0.0-0.7); Absolute Lymphocyte Count 1.25 k/cumm (1.2-3.4); Absolute Monocyte Count 0.61 k/cumm (0.11-0.7); Absolute Neutrophil Count 6.14 k/cumm (1.2-6.7); Basophils % 0.1; Eosinophils % 1.7; HCT 42.8 % (40.0-50.0); HGB 14.2 g/dL (13.5-17.5); Immature Grans % 0.4; Lymphocytes % 15.3; Mean Corp. HGB Concentration 33.2 g/dL (32.0-36.0); Mean Corpuscular Hemoglobin 29.2 pg (27.0-33.0); Mean Corpuscular Volume 87.9 fL (80-95); Monocytes % 7.5; Platelet Count 247 x1000/uL (130-400); RBC 4.87 m/cumm (4.50-6.00); RBC Distribution Width 14.5 % (11.8-14.1); White Blood Cell Count 8.18 k/cumm (4.4-10.8)
[2019-05-30 07:18] VITALS: BP 117/71; PULSE 87; RESP 17; TEMP 36.9; O2SAT 97
[2019-05-30 07:20] LABS: Anion Gap 9.3 mmol/L (3-11); BUN 12 mg/dL (7-18); CO2 23.7 mmol/L (21.0-32.0); CREATININE 1.41 mg/dL (0.70-1.30); Calcium 8.7 mg/dL (8.5-10.1); Chloride 108 mmol/L (98-107); Estimated GFR 48.61 (mL/min/1.73m2); Glucose 90 mg/dL (70-100); Magnesium 1.7 mg/dL (1.8-2.4); Sodium 141 mmol/L (136-145)
[2019-05-30] MEDS: Cyanocobalamin 500 MCG TAB PO (08:18)
[2019-05-30] MEDS: Cholecalciferol (Vitamin D3) 1,000 UNIT TAB 1000 UNITS PO (08:18)
[2019-05-30] MEDS: Lisinopril 5 MG TAB PO (08:18)
[2019-05-30] MEDS: Omeprazole 20 MG CAPCR PO (08:18)
[2019-05-30] MEDS: Aspirin E.C. 81 MG TABEC PO (08:18)
[2019-05-30] MEDS: Citalopram 20 MG TAB PO (08:18)
[2019-05-30] MEDS: Gabapentin 300 MG CAP PO ×2 (09:02→19:16)
--- NOTE | 2019-05-30 09:27 | INITIAL_ITS ---
- If Service Date Differs Date of service: 05/30/19 Time of Service: 09:27 Care Management Initial Assess REASON FOR HOSPITALIZATION:: COPD PAST MEDICAL HISTORY/PAST SURGICAL HISTORY:: Surgical History: Colonoscopy - IV Sedation (05/19/14). comminuted intra-articular distal radius fx rgt arm (03/11/17). Medical History: Anxiety disorder. Chronic airway obstruction. FEV 27% SEVERE OBSTRUCTION. Chronic respiratory failure with hypoxia, on home O2 therapy (Chronic). COPD (chronic obstructive pulmonary disease) (Chronic). 03/11/[address] Artis and has F/U in 2 months. Edema, unspecified (Inactive 07/13/15). Lung nodules. Lung transplant candidate. Multiple fractures of ribs, left side, subsequent encounter for fracture with routine healing. Neck pain. Nephrotic syndrome. Paroxysmal atrial fibrillation (Inactive). Paroxysmal atrial fibrillation. Renal cyst. Testicular swelling, left (Acute) PREVIOUS FUNCTIONAL STATUS/SOCIAL/FAMILY SUPPORTS:: Brian lives on a farm in [place] with his . He has 2 sons that have houses on or near the farm and who do most of the farming. 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 Brian remains very active and is independent at baseline. In addition to his 2 sons, Brian has 4 daughters and many grandchildren and great grandchildren. All of the children are very close and are very supportive. CURRENT FUNCTIONAL STATUS:: Brian was sitting up in bed when CM met with him. He was very pleasant and cooperative and willing to share stories about his family and younger years. He explained that he and his first got together on a blind date to go dancing and that they still go country dancing as often as they can. Brian stated that he and his have advanced directives but would like to update them. Cristine, the [facility] city carrier assistant, has offered to meet with them tomorrow morning. ADVANCE DIRECTIVES:: None on file Has patient been provided with information about the portal?: No Did the patient sign up for the portal?: No CODE STATUS:: DNR CODE STATUS COMMENT:: will allow intubation INSURANCE COVERAGE / FINANCIAL ISSUES:: Medicare. [employer] CURRENT HOME/COMMUNITY SERVICES/EQUIPMENT:: none PRIMARY CARE PHYSICIAN:: Deflina Shukla POTENTIAL DISCHARGE NEEDS:: Follow up with PCP and discharge plan of care PATIENT/FAMILY EDUCATION NEEDS:: Discharge plan, limitations, follow up care, Ask Me Three' ANTICIPATED BARRIERS TO DISCHARGE:: none identified TRANSPORTATION:: via private vehicle when ready PLAN:: Brian will return home with no new services when ready. He will transport with or other family via private vehicle. CM will continue to support patient, family and discharge planning needs.
[2019-05-30 11:07] VITALS: BP 128/89; PULSE 78; RESP 17; TEMP 36.8; O2SAT 96
[2019-05-30] MEDS: Magnesium Oxide 400 MG TAB PO (11:26)
[2019-05-30] MEDS: Lactobacillus Acidophilus CAP 1 CAP PO ×2 (13:53→19:16)
--- NOTE | 2019-05-30 14:04 | PGE_ITS ---
Date of Service Date of service: 05/30/19 Time of Service: 14:04 Assessment and Plan Assessment and plan (1) Sigmoid diverticulitis: Status: Acute Assessment and plan: pain slowing improving now on zosyn. no fevers, white count normalized. abdominal exam benign. will advance diet as tolerated. stop IV fluids after this current liter. will need outpatient f/u with GI. p mikal to downstep to oral tomorrow if tolerates PO advance. magnesium at 1.7 today, due to GI losses. will replete and follow (2) Essential hypertension: Status: Chronic Assessment and plan: continue lisinopril and monitor (3) Peptic reflux disease: Status: Chronic Assessment and plan: stable on omeprazole (4) DVT prophylaxis: Status: Acute Assessment and plan: continue enoxaparin (5) Insomnia, unspecified: Status: Chronic Assessment and plan: continue trazadone. (6) Anxiety: Status: Chronic Assessment and plan: stable, continue home medications (7) Discharge planning issues: Status: Acute Assessment and plan: anticipate discharge to home tomorrow with no services if tolerates PO advance diet. will need GI follow up outpatient Subjective Subjective Patient reports: no new complaints, pain is less, tolerating liquids well, voiding w/o difficulty and diarrhea (with no blood); denies blood in stool, nausea and vomiting Exam Narrative Exam Narrative: Const: warm dry well perfused, NAD. elderly well appearing gentleman of stated age HENMT: atraumatic, normalcephalic, moist mucosa EYES: PERRLA EOMI NECK: no lymphedema, no goiter, no JVD Chest: symmetrical, normal inspection Resp: even, unlabored respirations, clear Able to speak full sentences. Cardio: regular rate and rhythm GI: round, slightly distended, soft, BS positive all 4 quad, no pain reported on palpation. Skin: no rashes, lesions, wounds. Neuro: A&Ox 3, normal cognition, normal gait Extrem: No clubbing, edema, or cyanosis. moves all extremities Psych: normal mood and affect Objective Objective Clinical Data: Abnormal lab results 05/30/19 05/30/19 Range/Units 06:18 06:18 RDW 14.5 H (11.8-14.1) % Chloride 108 H (98-107) mmol/L Creatinine 1.41 H (0.70-1.30) mg/dL Magnesium 1.7 L (1.8-2.4) mg/dL Vital Signs Temperature 36.8 C 05/30/19 11:07 Temperature Source Tympanic 05/30/19 11:07 Pulse 78 05/30/19 11:07 Pulse Rhythm Regular 05/30/19 13:26 Respiratory Rate 17 05/30/19 11:07 Respiratory Effort Non-Labored 05/30/19 13:26 Respiratory Depth Normal 05/30/19 13:26 Respiratory Pattern Normal 05/30/19 13:26 Blood Pressure 128/89 05/30/19 11:07 Pulse Oximetry 96 05/30/19 11:07 Oxygen Delivery Method Room Air 05/30/19 11:07 Oxygen Flow Rate 0 05/30/19 11:07 Pain Level 0 05/30/19 11:07 Intake & Output 05/29/19 05/30/19 05/30/19 23:59 11:59 23:59 Intake Total 495.833 / 160.654 5602 / 3320 Output Total 350 / 350 950 / 1400 450 / 1400 Balance 145.833 / 533.573 1303 / 1920 -450 / 1920 Weight 81.647 kg 82.9 kg Intake: IV 495.833 / 790.505 8044 / 2110 Oral 1210 / 1210 Output: Urine 350 / 350 950 / 1400 450 / 1400 Other: Urine Color Yellow Yellow Urine Appearance Clear Clear Clear Urine Odor Normal Normal Stool Size Small Small Stool Characteristics Liquid Liquid Brown Brown Voiding Methods Toilet Toilet Laboratory Results WBC 8.18 k/cumm (4.4-10.8) 05/30/19 06:18 RBC 4.87 m/cumm (4.50-6.00) 05/30/19 06:18 Hgb 14.2 g/dL (13.5-17.5) D 05/30/19 06:18 Hct 42.8 % (40.0-50.0) 05/30/19 06:18 MCV 87.9 fL (80-95) 05/30/19 06:18 MCH 29.2 pg (27.0-33.0) 05/30/19 06:18 MCHC 33.2 g/dL (32.0-36.0) 05/30/19 06:18 RDW 14.5 % (11.8-14.1) H 05/30/19 06:18 Plt Count 247 x1000/uL (130-400) 05/30/19 06:18 MPV 10.0 fL (8.0-11.0) 05/30/19 06:18 Immature Gran % 0.4 05/30/19 06:18 Neutrophils % 75.0 05/30/19 06:18 Lymphocytes % 15.3 05/30/19 06:18 Monocytes % 7.5 05/30/19 06:18 Eosinophils % 1.7 05/30/19 06:18 Basophils % 0.1 05/30/19 06:18 Absolute Neutrophils 6.14 k/cumm (1.2-6.7) 05/30/19 06:18 Absolute Lymphocytes 1.25 k/cumm (1.2-3.4) 05/30/19 06:18 Absolute Monocytes 0.61 k/cumm (0.11-0.7) 05/30/19 06:18 Absolute Eosinophils 0.14 k/cumm (0.0-0.7) 05/30/19 06:18 Absolute Basophils 0.01 k/cumm (0.0-0.2) 05/30/19 06:18 Sodium 141 mmol/L (136-145) 05/30/19 06:18 Potassium 4.0 mmol/L (3.5-5.1) 05/30/19 06:18 Chloride 108 mmol/L (98-107) H 05/30/19 06:18 Carbon Dioxide 23.7 mmol/L (21.0-32.0) 05/30/19 06:18 Anion Gap 9.3 mmol/L (3-11) 05/30/19 06:18 BUN 12 mg/dL (7-18) 05/30/19 06:18 Creatinine 1.41 mg/dL (0.70-1.30) H 05/30/19 06:18 Estimated GFR/1.73 m2 48.61 (mL/min/1.73m2) 05/30/19 06:18 Glucose 90 mg/dL (70-100) 05/30/19 06:18 Lactate 0.9 mmol/L (0.6-1.4) 05/29/19 12:40 Calcium 8.7 mg/dL (8.5-10.1) 05/30/19 06:18 Magnesium 1.7 mg/dL (1.8-2.4) L 05/30/19 06:18 Total Bilirubin 1.0 mg/dL (0.2-1.0) 05/29/19 12:40 AST 24 U/L (15-37) 05/29/19 12:40 ALT 23 U/L (16-63) 05/29/19 12:40 Alkaline Phosphatase 77 U/L (46-116) 05/29/19 12:40 Total Protein 8.3 g/dL (6.4-8.2) H 05/29/19 12:40 Albumin 3.7 g/dL (3.4-5.0) 05/29/19 12:40
[2019-05-30] MEDS: Enoxaparin 40 MG/0.4 ML SYR SC (15:29)
[2019-05-30 16:31] VITALS: BP 131/81; PULSE 57; RESP 18; TEMP 36.7; O2SAT 95
--- NOTE | 2019-05-30 16:50 | CHAPLAIN ---
Brian's Clinical Team Manager asked me to check in with him about updating his Advance Directive. He would like to wait until his is here tomorrow morning, so I will check back with him then. The Clinical Team Manager, Naina, will check to see if we have a current Ad on file for Brian.
[2019-05-30] MEDS: Normal Saline Flush 10 ML SYR IVP (19:16)
[2019-05-30 19:35] VITALS: BP 150/87; PULSE 63; RESP 17; TEMP 36.3; O2SAT 95
[2019-05-30] MEDS: traZODone 50 MG TAB 100 MG PO (21:08)
[2019-05-31 00:20] VITALS: BP 137/80; PULSE 60; RESP 16; TEMP 36.8; O2SAT 93
[2019-05-31] MEDS: Normal Saline Flush 10 ML SYR IVP ×2 (02:47→09:46)
[2019-05-31] MEDS: PIPERACILLIN/TAZO 3.375 GM in Normal Saline 50 ML IVPB ×2 (02:47→09:45)
[2019-05-31 03:03] VITALS: BP 147/80; PULSE 60; RESP 16; TEMP 36.8; O2SAT 95
[2019-05-31 06:56] LABS: Abs Immature Grans 0.01 k/cumm (0.0-0.09); Absolute Basophil Count 0.02 k/cumm (0.0-0.2); Absolute Eosinophil Count 0.22 k/cumm (0.0-0.7); Absolute Lymphocyte Count 1.53 k/cumm (1.2-3.4); Absolute Monocyte Count 0.53 k/cumm (0.11-0.7); Absolute Neutrophil Count 5.01 k/cumm (1.2-6.7); Basophils % 0.3; HGB 14.6 g/dL (13.5-17.5); Immature Grans % 0.1; Lymphocytes % 20.9; Mean Corp. HGB Concentration 33.2 g/dL (32.0-36.0); Mean Corpuscular Hemoglobin 29.2 pg (27.0-33.0); Mean Platelet Volume 9.6 fL (8.0-11.0); Monocytes % 7.2; Neutrophils % 68.5; Platelet Count 270 x1000/uL (130-400); RBC Distribution Width 14.5 % (11.8-14.1); White Blood Cell Count 7.32 k/cumm (4.4-10.8)
[2019-05-31 07:09] LABS: Anion Gap 11.4 mmol/L (3-11); BUN 9 mg/dL (7-18); CO2 24.6 mmol/L (21.0-32.0); CREATININE 1.28 mg/dL (0.70-1.30); Calcium 9.2 mg/dL (8.5-10.1); Chloride 107 mmol/L (98-107); Estimated GFR 54.35 (mL/min/1.73m2); Glucose 98 mg/dL (70-100); Magnesium 1.7 mg/dL (1.8-2.4); Sodium 143 mmol/L (136-145)
[2019-05-31 07:30] VITALS: BP 127/81; PULSE 62; RESP 18; TEMP 36.3; O2SAT 93
[2019-05-31] MEDS: Lisinopril 5 MG TAB PO (09:46)
[2019-05-31] MEDS: Citalopram 20 MG TAB PO (09:46)
[2019-05-31] MEDS: Aspirin E.C. 81 MG TABEC PO (09:46)
[2019-05-31] MEDS: Cholecalciferol (Vitamin D3) 1,000 UNIT TAB 1000 UNITS PO (09:46)
[2019-05-31] MEDS: Omeprazole 20 MG CAPCR PO (09:46)
[2019-05-31] MEDS: Cyanocobalamin 500 MCG TAB PO (09:46)
[2019-05-31] MEDS: Gabapentin 300 MG CAP PO (09:47)
[2019-05-31] MEDS: Lactobacillus Acidophilus CAP 1 CAP PO (09:47)
[2019-05-31 11:30] VITALS: BP 145/91; PULSE 65; RESP 18; TEMP 36.7; O2SAT 95
[2019-05-31] MEDS: Magnesium Oxide 400 MG TAB PO (11:55)
[2019-05-31] MEDS: Preparation H 28 GM TUBE PR (12:00)
--- NOTE | 2019-05-31 13:11 | W.PM.DS.N ---
Date of service: 05/31/19 Time of Service: 13:12 DS: Diagnosis Discharge Diagnosis (1) Sigmoid diverticulitis: Status: Acute (2) Essential hypertension: Status: Chronic (3) Peptic reflux disease: Status: Chronic (4) Insomnia, unspecified: Status: Chronic (5) Anxiety: Status: Chronic Discharge Plan Disposition Patient Disposition: HOME Condition: Improving Discharge Details Chief Complaint: Abd Prob Reason For Visit: ACUTE DIVERTICULITIS Admit Date/Time: 05/29/19 14:48 Admit Provider: Elvie Bustillos Attending Provider: Elvie Bustillos Primary Care Provider: Delfina Lopes ED Provider: Nikita Brink [facility] Hospital Course: Brian Siddiqui is a very pleasant 78 year old male with a past medical history significant for hypertension, peptic reflux disease, diverticulosis and anxiety, who presented to the ED on 05/29 after being seen in the ED on 05/27 and diagnosed with diverticulitis and started on Augmentin. At the time of his initial presentation, he had a CT abdomen/pelvis which showed sigmoid diverticulitis. He presented back 2 days later with no improvement in his abdominal pain, nausea and vomiting. His labs showed mild leukocytosis and elevated creatinine. He was afebrile. He was admitted for IV fluids, Zosyn, bowel rest and monitoring of labs. Over the following days, his abdominal pain improved. He tolerated advancement of his diet to a regular diet. He remained afebrile. His renal function improved. Given that he improved on Zosyn, it is unlikely that he failed augmentin. He is discharged home to complete a full 14 day course of antibiotics. He will remain on Augmentin. He will follow up with his PCP within one week. It is recommended that he have a colonoscopy at 6-8 weeks after complete resolution of his diverticulitis. He was noted to have mildly low magnesium. He will be discharged home with oral magnesium supplementation. He will have a follow up magnesium level next week. Home Meds and New Rx's Prescriptions: New magnesium oxide 400 mg (241.3 mg magnesium) Tablet 400 mg PO DAILY@1000 Qty: 7 RF: 0 acidophilus-pectin, citrus 25 million cell -100 mg Tablet 1 cap PO TID Qty: 30 RF: 0 Preparation H 0.25-14-74.9 % Ointment 0 g RI BID PRN PRNQty: 0 RF: 0 Continued fortifeye 1 tab tablet PO DAILY AM RF: 0 aspirin [Aspir-81] 81 MG tablet,delayed release (DR/EC) 81 mg PO DAILY RF: 0 cholecalciferol (vitamin D3) 1,000 UNIT tablet 1,000 unit PO DAILY RF: 0 cyanocobalamin (vitamin B-12) [Vitamin B-12] 500 MCG tablet 500 mcg PO DAILY RF: 0 citalopram 20 mg tablet 20 mg PO DAILY Qty: 90 RF: 11 gabapentin 300 mg capsule 300 mg PO BID Qty: 180 RF: 12 lisinopril 5 mg tablet 5 mg PO DAILY Qty: 90 RF: 12 omeprazole 20 mg capsule,delayed release(DR/EC) 20 mg PO DAILY Qty: 90 RF: 4 trazodone 50 mg tablet 100 mg PO DAILY Qty: 180 RF: 11 sennosides [Senokot] 1 TAB tablet 2 tab PO DAILY RF: 0 amoxicillin-pot clavulanate [Augmentin] 875-125 mg tablet 1 tab PO Q12H Qty: 4 RF: 0 Discharge Instructions Instructions: Diverticulitis (DC), Diverticulitis Diet (DC) Additional Instructions: Advance your diet slowly at home. I have sent a prescription for 2 more days worth of the antibiotic that your were previously on. Continue taking the Augmentin as you were previously prescribed. You will need to have blood work next week to check your Magnesium level. Continue taking magnesium daily. Follow up with your PCP as scheduled. Stand Alone Forms: Nursing Discharge Form Referrals: Scott Muller [ [facility] STAFF PHYSICIAN] - 06/07/19 10:40 am Activity:: Activity as Tolerated Equipment/Supplies:: No Equipment Needed Diet:: As Tolerated Discharge Orders Discharge Orders: Discharge Order (Routine); Ordered 05/31/19 Ordered By: Tracy Oswald Other Ambulatory Orders: Magnesium (Routine) Timeframe: 1 Week Facility: [facility] - Location: Laboratory Outpatient Ordered By: Tracy Oswald DS: Summary Status at Discharge Functional status at discharge: independent ambulation Overall status at discharge: patient is progressing back to baseline Mental Status: mental status grossly normal Speech and Movement: speech and movement normal Mood: congruent mood Affect: normal affect Exam Narrative Exam Narrative: General: well appearing 78 year old man, sitting up in the chair, eating lunch, in NAD. Alert and oriented, pleasant and talkative. Answers questions appropriately. HEENT: normocephalic, atraumatic, pupils equal and round, EOMI, mucous membranes moist. Neck: Supple, no JVD. Cardiovascular: heart sounds regular, nontachycardic, no murmur appreciated. Respiratory: respirations even and unlabored, lung sounds clear bilaterally. GI: +Bowel sounds in all 4 quadrants, abdomen soft, round, nontender on palpation. Extremities: well perfused, no clubbing, cyanosis or edema. Peripheral pulses palpable bilaterally. Psych Mental Status: mental status grossly normal Speech and Movement: speech and movement normal Mood: congruent mood Affect: normal affect DS: Data Vitals/I&O Vitals and I&O: Vital Signs Temperature 36.7 C 05/31/19 11:30 Temperature Source Tympanic 05/31/19 11:30 Pulse 65 05/31/19 11:30 Pulse Rhythm Regular 05/31/19 10:03 Respiratory Rate 18 05/31/19 11:30 Respiratory Effort Non-Labored 05/31/19 10:03 Respiratory Depth Normal 05/31/19 10:03 Respiratory Pattern Normal 05/31/19 10:03 Blood Pressure 145/91 H 05/31/19 11:30 Pulse Oximetry 95 05/31/19 11:30 Oxygen Delivery Method Room Air 05/31/19 11:30 Oxygen Flow Rate 0 05/31/19 11:30 Pain Level 0 05/31/19 11:30 Intake & Output 05/30/19 05/31/19 05/31/19 23:59 11:59 23:59 Intake Total 1450 / 4770 740 / 740 Output Total 1950 / 2900 1900 / 2200 300 / 2200 Balance -500 / 1870 -1160 / -1460 -300 / -1460 Weight 82.7 kg Intake: IV 1100 / 3210 50 / 50 Oral 350 / 1560 690 / 690 Output: Urine 1950 / 2900 1900 / 2200 300 / 2200 Other: Urine Color Yellow Yellow Yellow Urine Appearance Clear Clear Clear Stool Size Moderate Moderate Small Stool Characteristics Soft Liquid Liquid Liquid Brown Brown Voiding Methods Toilet Toilet Toilet Data Completed and Pending Completed studies during hospitalization [Text1]: 05/27/19 (previous ER visit): EXAM: CT ABDOMEN PELVIS W CLINICAL HISTORY: abd pain, lower quadrants bilateral TECHNIQUE: Images were performed from the lung bases through the ischial tuberosities after IV and oral contrast. COMPARISON: ABD PELVIS WITH CONTRAST from 11/12/2015 FINDINGS: There is again noted to be wall thickening in the sigmoid as well as stranding in the surrounding fat. Numerous diverticula are again noted. Findings are consistent with diverticulitis, in a similar location to the previous exam. There is no evidence of obstruction. There is a normal quantity of stool. The small bowel is unremarkable. The lungs bases show dependent changes. There is a question of a small hiatal hernia. The liver shows mild fatty infiltration. Stones are noted in the gallbladder. There is no gallbladder distention or wall thickening. The spleen, pancreas and adrenals are unremarkable. Multiple bilateral renal cysts are again noted. There is a nonobstructing stone in the mid left kidney. The prostate is enlarged. The bladder is only mildly distended and there may be some wall thickening. There has been a previous left inguinal hernia repair. Degenerative changes are seen in the spine. IMPRESSION: Sigmoid diverticulitis. No evidence of abscess or perforation. Labs on day of discharge: Labs from last 24 hours 05/31/19 05/31/19 06:30 06:30 WBC 7.32 RBC 5.00 Hgb 14.6 Hct 44.0 MCV 88.0 MCH 29.2 MCHC 33.2 RDW 14.5 H Plt Count 270 MPV 9.6 Immature Gran % 0.1 Neutrophils % 68.5 Lymphocytes % 20.9 Monocytes % 7.2 Eosinophils % 3.0 Basophils % 0.3 Absolute Neutrophils 5.01 Absolute Lymphocytes 1.53 Absolute Monocytes 0.53 Absolute Eosinophils 0.22 Absolute Basophils 0.02 Sodium 143 Potassium 4.0 Chloride 107 Carbon Dioxide 24.6 Anion Gap 11.4 H BUN 9 Creatinine 1.28 Estimated GFR/1.73 m2 54.35 Glucose 98 Calcium 9.2 Magnesium 1.7 L [facility] Acute prostatitis (Resolved) elevated PSA-now normalized Anemia (Resolved) 07/09/96 Anxiety (Chronic) Cataract (Resolved) 02/26/15 Chest pain (Resolved) neg MPI 06/16 Dermatophytosis (Chronic) BX-neg. fungal; + spongiotic process + esinophils Diverticulosis of colon without diverticulitis (Chronic) SIGMOID (DR. ORQUIDEA MICHAEL) 12/29/11 Essential hypertension (Chronic 07/18/13) Hematuria (Resolved) unspecified renal cysts per CT; s/p cysto Insomnia, unspecified (Chronic 05/25/17) Intestinal obstruction (Resolved) Knee pain (Resolved) 10/01/15 Meralgia paraesthetica (Resolved) Peptic reflux disease (Chronic) H.H. Pneumonia due to infectious organism (Resolved) 08/31/17 unspecified unilaterality, unspecified part of lung Rib pain (Resolved) 07/09/05 after episode w/bull Sigmoid diverticulitis (Acute) Vertigo (Resolved) Vitamin D deficiency (Resolved) 09/26/08 Surgical History History of appendectomy (Chronic) Repair of inguinal hernia LEFT S/P inguinal hernia repair (Resolved) left Family History Mother , 93 Essential hypertension Father , 88 Heart disease Myocardial infarction Sister Breast cancer Paternal Grandfather Stroke Maternal Grandmother , OLD AGE at age 85. No problems noted. Paternal Grandmother Stroke Son No problems noted. Son No problems noted. Daughter No problems noted. Daughter No problems noted. Daughter No problems noted. Daughter No problems noted. Social History Smoking/Tobacco Use Status: Never Alcohol Intake: current Alcohol Intake frequency: a few times a month Drug use: Never Substance use type: does not use Caregiver/Support person: Yes Household members: spouse Housing: house Communication Needs: Language Barriers Do you need help understanding health information?: Always Pets and animals: No Sexually active: Yes Do you think of yourself as: straight/heterosexual Current gender identity: male What is your relationship status?: How often do you talk on the phone with friends or family?: never How often do you get together with friends or relatives?: once per week How often do you attend anabaptism or gnosticist services?: 4 or more times per year Do you belong to any clubs or organized social groups?: yes Panel score (0-1 are the most socially isolated patients): 3 What type of physical activity do you participate in: decline to answer Duration: 15-30 minutes/day Frequency: daily Vilma/Christianity: Faith Special vilma needs: No Seatbelt use: sometimes Helmet use: Yes Helmet use: always Drive intox or ride w/intox 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
--- NOTE | 2019-05-31 16:16 | CHAPLAIN ---
Brian has requested help completing a new advance directive today. I'd left copies for him and his last night. Today, they decided they would take them home to work on them and bring them back to be witnessed and filed. I responded to all their questions.
--- NOTE | 2019-05-31 16:32 | PDOC.CMDIS ---
- If Service Date Differs Date of service: 05/31/19 Time of Service: 16:33 LACE Index Scoring Tool - Questions: Length of Stay (in days): 2 Acuity (Admit via E.D.?): Yes E.D. Visits: 2 - Answers: Total Score: 7 Risk of Readmission: Low Risk Care Management Discharge Reason for Hospitalization: COPD Discharge Plan: Brian will be discharged home with no new services. He will transport via private vehicle with Milena. He will follow up with his PCP and discharge plan of care. Patient/Family Education Needs: Discharge plan, limitations, follow up, Ask me Three.
== END 2019-05-31 14:55 | disposition home or self-care (01) | DRG 392 ==
LOC: ER 15:20 → MS 16:07
PROVIDERS: Nurse Practitioner Acute Care; Admitting Provider Internal Medicine; Emergency Provider Nurse Practitioner Family; PCP Family Medicine; Visit Provider Internal Medicine
DX: K57.32 Diverticulitis of large intestine without perforation or abscess without bleeding (principal); I10 Essential (primary) hypertension; K21.9 Gastro-esophageal reflux disease without esophagitis; G47.00 Insomnia, unspecified; F41.9 Anxiety disorder, unspecified
CPT/HCPCS: 36415; 80048; 80053; 96361; 96365; 96366; 96375; 99223; 99233; 99239; 99285; J1650; 83605; 83735; 85025; 99284; J1885; J2543

== ENCOUNTER 2019-06-03 11:22 | Outpatient (CLI) | payer MEDICARE, OTHER, SELFPAY ==
[2019-06-03 13:12] LABS: Magnesium 1.6 mg/dL (1.8-2.4)
== END 2019-06-03 11:42 ==
PROVIDERS: PCP Family Medicine; Visit Provider Nurse Practitioner
DX: E83.42 Hypomagnesemia (principal)
CPT/HCPCS: 36415; 83735

== ENCOUNTER 2019-06-17 01:44 | Outpatient (CLI) | payer MEDICARE, OTHER, SELFPAY ==
[2019-06-17 11:17] LABS: Magnesium 1.9 mg/dL (1.8-2.4)
== END 2019-06-17 02:04 ==
PROVIDERS: PCP Family Medicine; Visit Provider Family Medicine
DX: E83.42 Hypomagnesemia (principal)
CPT/HCPCS: 36415; 83735

== ENCOUNTER → 2019-06-20 14:44 | Outpatient (BNVA) | payer MEDICARE, OTHER, SELFPAY | PROVIDERS: PCP Family Medicine; Referring Provider Family Medicine; Visit Provider Surgery | DX: K60.2 Anal fissure, unspecified (principal) | CPT/HCPCS: 99203; 99214 ==

== ENCOUNTER → 2019-06-30 10:23 | Outpatient (BNVA) | payer MEDICARE, OTHER, SELFPAY | PROVIDERS: PCP Family Medicine; Referring Provider Family Medicine; Visit Provider Surgery | DX: K60.2 Anal fissure, unspecified (principal) | CPT/HCPCS: 99212; 99213 ==

== ENCOUNTER → 2019-07-11 09:38 | Outpatient (BNVA) | payer MEDICARE, OTHER, SELFPAY | PROVIDERS: PCP Family Medicine; Referring Provider Family Medicine; Visit Provider Surgery | DX: K60.2 Anal fissure, unspecified (principal); K57.32 Diverticulitis of large intestine without perforation or abscess without bleeding | CPT/HCPCS: 99213 ==

== ENCOUNTER 2019-07-12 06:55 | Day surgery (SDC) | payer MEDICARE, OTHER, SELFPAY ==
[2019-07-12 07:29] VITALS: BP 154/92; PULSE 87; RESP 16; TEMP 36.7; O2SAT 95
[2019-07-12] MEDS: Lactated Ringers 1,000 ML 80 ML IV (07:55)
--- NOTE | 2019-07-12 08:36 | PDOC.DSDIS_ITS ---
Discharge Plan Disposition Patient Disposition: HOME Condition: Good Discharge Details Reason For Visit: DIVERTICULITIS, Anal fissure Attending Provider: Rochelle Hobbs Primary Care Provider: Delfina Lopes Home Meds and New Rx's Prescriptions: Continued fortifeye 1 tab tablet PO DAILY AM RF: 0 aspirin [Aspir-81] 81 MG tablet,delayed release (DR/EC) 81 mg PO DAILY RF: 0 cholecalciferol (vitamin D3) 1,000 UNIT tablet 1,000 unit PO DAILY RF: 0 cyanocobalamin (vitamin B-12) [Vitamin B-12] 500 MCG tablet 500 mcg PO DAILY RF: 0 citalopram 20 mg tablet 20 mg PO DAILY Qty: 90 RF: 11 gabapentin 300 mg capsule 300 mg PO BID Qty: 180 RF: 12 lisinopril 5 mg tablet 5 mg PO DAILY Qty: 90 RF: 12 omeprazole 20 mg capsule,delayed release(DR/EC) 20 mg PO DAILY Qty: 90 RF: 4 sennosides [Senokot] 1 TAB tablet 2 tab PO DAILY RF: 0 Discontinued polyethylene glycol 3350 17 gram/dose powder 238 g PO ONCE Qty: 238 RF: 0 bisacodyl 5 mg tablet,delayed release (DR/EC) 5 mg PO ONCE Qty: 4 RF: 0 Discharge Instructions Additional Instructions: Findings: Diverticulosis was found during the colonoscopy. 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 Internal hemorrhoids were banded. Follow up: Continue sitz baths twice a day The incision is closed with a dissolvable stitch. A small amount of bleeding is expected so wear a pad in the underwear. Please call if you develop: fevers >101.5 Nausea or Vomiting Abdominal pain that is not transient Significant bleeding DAY SURGERY UNIT POST COLONOSCOPY INSTRUCTIONS 1. Because there will be medication in your system for the next 24 hours, you may feel a little sleepy. Your coordination will be affected. Therefore: a. Do not drive or operate dangerous equipment for 24 hours. b. Do not drink alcohol beverages for 24 hours (not even beer). c. Plan to go home and rest for the day. 2. Generally there are no restrictions on your activity after a day or so has gone by, but you may feel a bit fatigued for a few days. 3 After you arrive home you may have a light meal and return to a normal diet as you can tolerate it without feeling sick to your stomach. 4. After surgery, you may feel pain or discomfort. This should be only transient, but if it persists please contact your doctor. 5. If there are any questions regarding the findings of your procedure, please feel free to contact your doctor. 6. If you are unable to contact your doctor with a problem, contact the hospital at [phone]. 7. Continue all your regular medications unless directed otherwise. I understand the above instructions and have no questions. Signature of Patient or Responsible Adult Escort Date/Time Name of Responsible Adult Escort Signature of Nurse Date/Time Referrals: Rochelle Hobbs MD [ [facility] STAFF PHYSICIAN] - (Return next week for a postop visit) Activity:: Activity as Tolerated Shower/Bathe:: 24 hours Diet:: As Tolerated Discharge Orders Discharge Orders: Discharge Order (Routine); Ordered 07/12/19 Ordered By: Rochelle Hobbs DS: Diagnosis Discharge Diagnosis (1) Anal fissure: Status: Acute (2) Diverticulosis of colon without diverticulitis: Status: Chronic (3) Internal hemorrhoids: Status: Acute
[2019-07-12] MEDS: fentaNYL 100 MCG/2 ML VIAL (08:45)
--- NOTE | 2019-07-12 09:35 | BOWEL_PTH ---
PATIENT: Brian Siddiqui LOC: [facility] U#:[id number] AGE/SX: 78/M ROOM: RE07/12/[address]: Rochelle Hobbs MD : 1940 BED: DIS: 07/12/2019 SPEC #: [id number] RECD: 07/12/19 12:50 STATUS: TRAE REDony #: [id number] LIVIA: 07/12/19 09:[address]: Rochelle Hobbs DEPT: Surgical Specimen RECD BY: Gloria Lopez ENTERED: 07/12/19 12:51 SP TYPE: Bowel OTHR DR: Delfina Lopes MD, DC Tissues: 1 - BIOPSY BOWEL Procedures: GROSS AND MICRO LEVEL 4 Comments: [id number]
[2019-07-12] MEDS: Bupivacaine LIPOSOME/PF 133 MG/10 ML VIAL IJ (09:57)
[2019-07-12 10:52] VITALS: BP 120/76; PULSE 80; RESP 16; TEMP 36.2; O2SAT 95
--- NOTE | 2019-07-12 12:59 | COLE_ITS ---
DATE OF PROCEDURE: July 12, 2019 PREOPERATIVE DIAGNOSIS: 1. Perianal pain. 2. Diverticulitis. POSTOPERATIVE DIAGNOSIS: 1. Internal hemorrhoids. 2. Chronic posterior midline anal fissure. 3. Diverticulosis. PROCEDURE: 1. Colonoscopy. 2. Anal exam under anesthesia. 3. Left lateral internal sphincterotomy. 4. Internal hemorrhoid banding. SURGEON: Rochelle Hobsb M.D. ANESTHESIA: Spinal and Exparel. INDICATIONS: This is a 78-year-old man who complains of significant perianal pain for the past month . The patient was also admitted earlier this year with presumed diverticulitis. His last colonoscop y was in 2011. Anoscopy was attempted in the office but was limited due to patient discomfort. We d id treat him for a presumed fissure with topical treatment including hydrocortisone and nifedipine. This did not improve his symptoms. PROCEDURE: The patient had a spinal anesthetic placed and then was carefully positioned into [facility]. The colonoscopy was performed first. Digital rectal examination revealed no signifi cant abnormalities. The colonoscope was advanced to the cecum without difficulty. The ileocecal eleanor ve and appendiceal orifice were clearly identified. The patient was noted to have mild melanosis col i. He does chronically take senna laxative. The scope was slowly withdrawn with no abnormalities se en within the ascending, transverse or descending colon. He did have moderate sigmoid diverticular d isease, but no evidence of acute inflammation or strictures. The rectum was normal, including on ret roflex view, with the exception of prominent internal hemorrhoids. The air was suctioned free and th e scope withdrawn. The patient's legs were elevated and his buttocks taped for better exposure. The perianal region was prepped with Betadine. Anoscopy was performed and Betadine prep used internally as well. Anoscopy revealed a definite posterior midline chronic fissure. This was slightly firm from inflammatory gerardo ge. There was a small sentinel tag on the distal aspect. I did biopsy this tag, although it does a ppear benign. There was some exposed sphincter muscle. The patient was also noted to have prominent internal hemorrhoids. A left lateral internal sphincterotomy was performed. I had tested the spina l anesthetic, which was good. A small incision was made in the left lateral location and subcutaneou s tissue divided gently with a hemostat. The sphincteric complex was identified. A hemostat was use d to elevate the hemorrhoidal tissue up off the internal sphincter and then also used to separate the internal sphincter from the external sphincter. Metzenbaum scissors were used to divide the interna l sphincter about prison to the dentate line. Gentle pressure was applied to the remaining internal sphincter to partially disrupt this. I then banded three prominent internal hemorrhoid bundles with the suction managing consultant using latex-free bands. There was good hemostasis so the skin was closed with a running #4-0 Monocryl subcuticular stitch. I did inject 10 cc's of Exparel primarily into the sphinc terotomy location and the fissure location. He tolerated the procedure well and was stable to recove ry. He will not need a further screening colonoscopy. cc: Delfina Lopes M.D.
== END 2019-07-12 11:58 | disposition home or self-care (01) ==
PROVIDERS: PCP Family Medicine; Visit Provider Surgery
PROC: 0DJD8ZZ Inspection of Lower Intestinal Tract, Via Natural or Artificial Opening Endoscopic (ICD-10-PCS; CPT 45378; principal; 2019-07-12 08:30)
PROC: (CPT 46080; 2019-07-12 08:30)
DX: K60.1 Chronic anal fissure (principal); K64.8 Other hemorrhoids; K57.30 Diverticulosis of large intestine without perforation or abscess without bleeding
CPT/HCPCS: 46200; 45398; 88305; J3010

== ENCOUNTER → 2019-07-18 13:12 | Outpatient (BNVA) | payer MEDICARE, OTHER, SELFPAY | PROVIDERS: PCP Family Medicine; Referring Provider Family Medicine; Visit Provider Surgery | DX: Z48.815 Encounter for surgical aftercare following surgery on the digestive system (principal); I10 Essential (primary) hypertension ==

== ENCOUNTER 2020-04-23 03:39 | Outpatient (CLI) | payer MEDICARE, OTHER, SELFPAY ==
[2020-04-23 09:50] LABS: ALT 26 U/L (16-63); AST 16 U/L (15-37); Albumin 3.9 g/dL (3.4-5.0); Alkaline Phosphatase 70 U/L (46-116); Anion Gap 5.4 mmol/L (3-11); BUN 15 mg/dL (7-18); Bilirubin, Total 0.7 mg/dL (0.2-1.0); CO2 30.6 mmol/L (21.0-32.0); CREATININE 1.19 mg/dL (0.70-1.30); Calcium 9.3 mg/dL (8.5-10.1); Calculated LDL 87 mg/dL (<100); Chloride 106 mmol/L (98-107); Cholesterol 158 mg/dL (<200); Estimated GFR 58.97 (mL/min/1.73m2); Glucose 101 mg/dL (74-106); HDL Cholesterol 39 mg/dL (40-60); Sodium 142 mmol/L (136-145); Total Protein 6.8 g/dL (6.4-8.2); Triglyceride 162 mg/dL (<150)
== END 2020-04-23 03:59 ==
PROVIDERS: PCP Family Medicine; Visit Provider Family Medicine
DX: I10 Essential (primary) hypertension (principal)
CPT/HCPCS: 36415; 80053; 80061

== ENCOUNTER 2020-08-09 09:32 | Outpatient (CLI) | payer MEDICARE, OTHER, SELFPAY ==
[2020-08-09 12:55] LABS: ALT 34 U/L (16-63); AST 20 U/L (15-37); Albumin 4.3 g/dL (3.4-5.0); Alkaline Phosphatase 73 U/L (46-116); Anion Gap 6.9 mmol/L (3-11); BUN 16 mg/dL (7-18); Bilirubin, Total 0.7 mg/dL (0.2-1.0); CO2 29.1 mmol/L (21.0-32.0); CREATININE 1.22 mg/dL (0.70-1.30); Calcium 9.8 mg/dL (8.5-10.1); Chloride 105 mmol/L (98-107); Glucose 95 mg/dL (74-106); Sodium 141 mmol/L (136-145); Total Protein 7.5 g/dL (6.4-8.2)
== END 2020-08-09 09:52 ==
PROVIDERS: PCP Family Medicine; Visit Provider Family Medicine
DX: I10 Essential (primary) hypertension (principal); F41.9 Anxiety disorder, unspecified
CPT/HCPCS: 36415; 80053

== ENCOUNTER → 2020-09-18 09:23 | Outpatient (BNVA) | payer MEDICARE, OTHER, SELFPAY | PROVIDERS: PCP Family Medicine; Referring Provider Family Medicine; Visit Provider Surgery | DX: K64.8 Other hemorrhoids (principal) | CPT/HCPCS: 46600; 99213 ==

== ENCOUNTER → 2020-09-28 10:28 | Outpatient (BNVA) | payer MEDICARE, OTHER, SELFPAY | PROVIDERS: PCP Family Medicine; Referring Provider Family Medicine; Visit Provider Surgery | DX: K64.8 Other hemorrhoids (principal) | CPT/HCPCS: 99212; 99213 ==

== ENCOUNTER 2022-04-30 17:06 | Outpatient (CLI) | payer MEDICARE, OTHER, SELFPAY ==
--- NOTE | 2022-04-30 17:00 | RT.EKG_ITS ---
APPROVED REPORT Exam: Resting ECG Reason for Exam: chest discomfort Patient Location: O HR:69 bpm ECG Measurements Heart Rate 69 AXIS IL 229 P 10 QRSd 90 QRS -27 QT 388 T 1 QTc 416 Conclusion Sinus rhythm...normal P axis, V-rate 50- 99 Prolonged IL interval...IL >220, V-rate 50- 90 LVH by voltage...R >1.20 in aVL
== END 2022-04-30 17:07 | disposition home or self-care (01) ==
LOC: DI.CM 17:07
PROVIDERS: PCP Family Medicine; Visit Provider Nurse Practitioner Family
DX: R07.89 Other chest pain (principal)
CPT/HCPCS: 93010

== ENCOUNTER 2022-06-10 12:35 | Outpatient (CLI) | payer MEDICARE, OTHER, SELFPAY ==
[2022-06-10 13:00] LABS: ALT 20 U/L (16-63); AST 16 U/L (15-37); Alkaline Phosphatase 83 U/L (46-116); Anion Gap 7.2 mmol/L (3-11); BUN 13 mg/dL (7-18); Bilirubin, Total 0.6 mg/dL (0.2-1.0); CO2 29.8 mmol/L (21.0-32.0); CREATININE 1.2 mg/dL (0.70-1.30); Chloride 107 mmol/L (98-107); Estimated GFR 60.75 (mL/min/1.73m2); Glucose 99 mg/dL (74-106); Potassium 3.9 mmol/L (3.5-5.1); Sodium 144 mmol/L (136-145); Total Protein 7.7 g/dL (6.4-8.2); Vitamin B12 903 pg/mL (193-986)
== END 2022-06-10 12:36 | disposition home or self-care (01) ==
LOC: LBO 12:36
PROVIDERS: PCP Family Medicine; Visit Provider Family Medicine
DX: K31.9 Disease of stomach and duodenum, unspecified (principal); I10 Essential (primary) hypertension
CPT/HCPCS: 36415; 80053; 82607

== ENCOUNTER 2023-04-15 17:21 | Outpatient (CLI) | payer MEDICARE, OTHER, SELFPAY ==
--- NOTE | 2023-04-15 17:15 | RT.EKG_ITS ---
APPROVED REPORT Exam: Resting ECG Reason for Exam: Dizziness Patient Location: O HR:58 bpm ECG Measurements Heart Rate 58 AXIS MI 220 P 33 QRSd 95 QRS -22 QT 416 T -9 QTc 409 Conclusion Sinus rhythm...normal P axis, V-rate 50- 99 Prolonged MI interval...MI >220, V-rate 50- 90 Left ventricular hypertrophy...multiple voltage criteria Borderline T abnormalities, inferior leads...T flat/neg, II III aVF
== END 2023-04-15 17:22 | disposition home or self-care (01) ==
LOC: DI.CM 17:22
PROVIDERS: PCP Family Medicine; Visit Provider Nurse Practitioner Family
DX: R07.89 Other chest pain (principal); R42 Dizziness and giddiness
CPT/HCPCS: 93010

== ENCOUNTER 2023-05-03 11:07 | Emergency (ER) | payer MEDICARE, OTHER, SELFPAY ==
[2023-05-03] VITALS (23 sets, daily range): BP systolic 154–167; BP diastolic 79–93; PULSE 65–83; RESP 13–24; TEMP 36.8; O2SAT 95
--- NOTE | 2023-05-03 11:00 | RT.EKG_ITS ---
APPROVED REPORT Exam: Resting ECG Reason for Exam: dIZZY Patient Location: E HR:71 bpm ECG Measurements Heart Rate 71 AXIS [place] 230 P 40 QRSd 99 QRS -43 QT 396 T 32 QTc 430 Conclusion nomral inus rhythm. Prolonged NJ interval...[place] >220, V-rate 50- 90 Left ventricular hypertrophy...multiple voltage criteria No ST segment or T wave abnormalities to suggest occlusive NH
--- NOTE | 2023-05-03 11:27 | W.ED.GENAD ---
Discharge Plan Disposition Patient Disposition: Home Condition: Stable Discharge Details Clinical Impression: Dizziness, Hypomagnesemia, Thyroid goiter Primary Care Provider: Delfina Lopes ED Provider: Marylu Felder Home Meds and New Rx's Prescriptions: Continued citalopram 20 mg tablet 20 mg PO DAILY Qty: 90 11RF Rx Instructions: note dose reduction gabapentin 300 mg capsule 300 mg PO BID Qty: 180 12RF lisinopril 5 mg tablet 5 mg PO DAILY Qty: 90 12RF omeprazole 20 mg capsule,delayed release(DR/EC) 20 mg PO DAILY Qty: 90 4RF Rx Instructions: dr fall; please fill diphth,pertus(acell),tetanus 2.5-8-5 Lf-mcg-Lf/0.5mL syringe 0.5 ml IM ONCE Qty: 0.5 0RF Rx Instructions: as a single dose meclizine 25 mg tablet 25 mg PO TID PRN (Reason: dizziness) Qty: 20 0RF sennosides [Senokot] 1 TAB tablet 2 tab PO DAILY No Action ketoconazole 2 % cream 1 applic topical BID PRN (Reason: itching) 14 Days Qty: 30 0RF Discharge Instructions Instructions: Hypomagnesemia (ED), Dizziness (ED) Additional Instructions: They thyroid tests are within normal limits. Labs show some mildly low magnesium levels. CT shows no evidence of CVA or stroke. Follow up with primary care provider in 3-5 days. Return to ED sooner if any worsening or concerns. Increase oral fluids. No evidence of heart attack, or UTI. CT does show a thyroid goiter which might need to be followed up with with a ultrasound. Referrals: Delfina Lopes MD, [place] [Primary Care Provider] - 3 days Discharge Data Discharge Date/Time-TO BE ENTERED AT DEPARTURE: 05/03/23 15:06 Medical Decision Making 82-year-old male with a past medical history of anxiety, dizziness, diverticulitis vitamin D deficiency prostatitis and hearing loss presents with chief complaint of dizziness and loss of balance which began this morning. He denies any chest pain shortness of breath. He states that he was walking on his bed when this occurred and he lost his balance falling backward. He did hit his left forearm on a bureau. Denies hitting his head no loss of consciousness. He has been seeing physical therapy for history of vertigo and has been taking meclizine every 8 hours which has helped somewhat. He denies any nausea vomiting abdominal pain or problems urinating. He is alert and oriented no focal neurodeficits noted on initial presentation. 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 TSH with Refractory T4 added on to labs. CBC shows RBCs of 5.80, glucose 127 magnesium slightly low at 1.7, urinalysis shows trace blood, 3-5 RBCs. Initial troponin within normal limits. Discussed results with patient and family, verbalized understanding, I did offer meclizine which patient declined at this time. All their questions were answered to the best of my ability. Patient discharged into the care of his family. He remained hemodynamically stable alert and oriented throughout the remainder of his stay. This text was generated using [employer] dictation system, please disregard any oddities of phrase or misspellings. Medical Records Medical records reviewed: Yes I reviewed the patient's medical records. Lab Data Lab results reviewed: Yes I reviewed the patient's lab results. Labs: Laboratory Tests Range/Units 05/03/23 05/03/23 05/03/23 11:37 11:37 11:37 WBC (4.4-10.8) 10^3/uL 6.74 RBC (4.36-5.78) 10^6/uL 5.80 H Hgb (13.5-17.5) g/dL 16.6 Hct (40.0-50.0) % 51.5 H MCV (80-95) fL 89 MCH (27.0-33.0) pg 28.6 MCHC (32.0-36.0) % 32.2 RDW (11.8-14.1) % 13.9 Plt Count (130-400) 10^3/uL 207 MPV (8.0-11.0) fL 9.2 Immature Gran % 0.6 Neutrophils % 74.3 Lymphocytes % 16.9 Monocytes % 4.6 Eosinophils % 3.0 Basophils % 0.6 Nucleated RBC % (0.0-0.3) % 0.0 Absolute Neutrophils (1.2-6.7) 10^3/uL 5.01 Absolute Lymphocytes (1.2-3.4) 10^3/uL 1.14 L Absolute Monocytes (0.1-0.8) 10^3/uL 0.31 Absolute Eosinophils (0.0-0.7) 10^3/uL 0.20 Absolute Basophils (0.0-0.2) 10^3/uL 0.04 Sodium (136-145) mmol/L 138 Potassium (3.5-5.1) mmol/L 4.1 Chloride (98-107) mmol/L 102 Carbon Dioxide (21.0-32.0) mmol/L 29.0 Anion Gap (3-11) mmol/L 7.0 BUN (7-18) mg/dL 16 Creatinine (0.70-1.30) mg/dL 1.2 Est GFR (CKD-EPI 2020) (mL/min/1.73m2) 60.38 Glucose (74-106) mg/dL 127 H Calcium (8.5-10.1) mg/dL 9.9 Magnesium (1.8-2.4) mg/dL 1.7 L Total Bilirubin (0.2-1.0) mg/dL 0.7 AST (15-37) U/L 13 L ALT (16-63) U/L 23 Alkaline Phosphatase (46-116) U/L 78 Troponin I (<or=60) ng/L < 50 Total Protein (6.4-8.2) g/dL 7.5 Albumin (3.4-5.0) g/dL 3.7 TSH (0.36-3.74) uIU/mL Urine Color (Yellow) Urine Clarity (Clear) Urine pH (5-8) Ur Specific [place] (1.005-1.025) Urine Protein (Negative) mg/dL Urine Ketones (Negative) mg/dL Urine Blood (Negative) Urine Nitrite (Negative) Urine Bilirubin (Negative) Urine Urobilinogen (Up to 0.2) mg/dL Ur Leukocyte Esterase (Negative) Urine RBC (0-2) HPF Urine WBC (0-5) HPF Ur Epithelial Cells (Negative) HPF Urine Crystals (Negative) HPF Urine Bacteria (Negative) HPF Urine Casts (Negative) LPF Urine Mucus (Negative) Ur Culture Indicated? Urine Glucose (Negative) mg/dL Add-On Test Request DONE Range/Units 05/03/23 05/03/23 05/03/23 11:37 12:37 14:20 WBC (4.4-10.8) 10^3/uL RBC (4.36-5.78) 10^6/uL Hgb (13.5-17.5) g/dL Hct (40.0-50.0) % MCV (80-95) fL MCH (27.0-33.0) pg MCHC (32.0-36.0) % RDW (11.8-14.1) % Plt Count (130-400) 10^3/uL MPV (8.0-11.0) fL Immature Gran % Neutrophils % Lymphocytes % Monocytes % Eosinophils % Basophils % Nucleated RBC % (0.0-0.3) % Absolute Neutrophils (1.2-6.7) 10^3/uL Absolute Lymphocytes (1.2-3.4) 10^3/uL Absolute Monocytes (0.1-0.8) 10^3/uL Absolute Eosinophils (0.0-0.7) 10^3/uL Absolute Basophils (0.0-0.2) 10^3/uL Sodium (136-145) mmol/L Potassium (3.5-5.1) mmol/L Chloride (98-107) mmol/L Carbon Dioxide (21.0-32.0) mmol/L Anion Gap (3-11) mmol/L BUN (7-18) mg/dL Creatinine (0.70-1.30) mg/dL Est GFR (CKD-EPI 2020) (mL/min/1.73m2) Glucose (74-106) mg/dL Calcium (8.5-10.1) mg/dL Magnesium (1.8-2.4) mg/dL Total Bilirubin (0.2-1.0) mg/dL AST (15-37) U/L ALT (16-63) U/L Alkaline Phosphatase (46-116) U/L Troponin I (<or=60) ng/L < 50 Total Protein (6.4-8.2) g/dL Albumin (3.4-5.0) g/dL TSH (0.36-3.74) uIU/mL 0.63 Urine Color (Yellow) Yellow Urine Clarity (Clear) Clear Urine pH (5-8) 6.0 Ur Specific [place] (1.005-1.025) 1.015 Urine Protein (Negative) mg/dL Negative Urine Ketones (Negative) mg/dL Negative Urine Blood (Negative) Trace-intact H Urine Nitrite (Negative) Negative Urine Bilirubin (Negative) Negative Urine Urobilinogen (Up to 0.2) mg/dL 0.2 Ur Leukocyte Esterase (Negative) Negative Urine RBC (0-2) HPF 3-5 H Urine WBC (0-5) HPF 0-2 Ur Epithelial Cells (Negative) HPF Few Urine Crystals (Negative) HPF Negative Urine Bacteria (Negative) HPF Rare Urine Casts (Negative) LPF Negative Urine Mucus (Negative) Trace Ur Culture Indicated? No Urine Glucose (Negative) mg/dL Negative Add-On Test Request HPI General Mode of arrival: ambulatory. Date/Time Provider Initiated Documentation: 05/03/23 11:10. Limitations to Documentation: no limitations. Information obtained by: patient, RN notes reviewed and old records reviewed. HPI Narrative: 82-year-old male with a past medical history of anxiety, dizziness, diverticulitis vitamin D deficiency prostatitis and hearing loss presents with chief complaint of dizziness and loss of balance which began this morning. He denies any chest pain shortness of breath. He states that he was walking on his bed when this occurred and he lost his balance falling backward. He did hit his left forearm on a bureau. Denies hitting his head no loss of consciousness. He has been seeing physical therapy for history of vertigo and has been taking meclizine every 8 hours which has helped somewhat. He denies any nausea vomiting abdominal pain or problems urinating. He is alert and oriented no focal neurodeficits noted on initial presentation. Related Data Home Medications Medication Instructions Recorded Confirmed sennosides 8.6 mg tablet (Senokot) 2 tab PO DAILY 12/05/13 05/05/23 citalopram 20 mg tablet 20 mg PO DAILY #90 tab-caps 04/09/23 05/05/23 diphth,pertus(acell),tetanus 2.5 0.5 ml IM ONCE #0.5 mL 04/09/23 05/05/23 Lf unit-8 mcg-5 Lf/0.5mL IM syringe gabapentin 300 mg capsule 300 mg PO BID #180 tab-caps 04/09/23 05/05/23 lisinopril 5 mg tablet 5 mg PO DAILY #90 tab-caps 04/09/23 05/05/23 omeprazole 20 mg capsule,delayed 20 mg PO DAILY #90 tabs 04/09/23 05/05/23 release meclizine 25 mg tablet 25 mg PO TID PRN dizziness #20 tabs 04/24/23 05/05/23 ketoconazole 2 % topical cream 1 applic topical BID PRN itching 2 05/05/23 05/05/23 weeks #30 grams Previous Rx's Medication Instructions Recorded citalopram 20 mg tablet 20 mg PO DAILY #90 tab-caps 04/09/23 diphth,pertus(acell),tetanus 2.5 0.5 ml IM ONCE #0.5 mL 04/09/23 Lf unit-8 mcg-5 Lf/0.5mL IM syringe gabapentin 300 mg capsule 300 mg PO BID #180 tab-caps 04/09/23 lisinopril 5 mg tablet 5 mg PO DAILY #90 tab-caps 04/09/23 omeprazole 20 mg capsule,delayed 20 mg PO DAILY #90 tabs 04/09/23 release meclizine 25 mg tablet 25 mg PO TID PRN dizziness #20 tabs 04/24/23 ketoconazole 2 % topical cream 1 applic topical BID PRN itching 2 05/05/23 weeks #30 grams Allergies Allergy/AdvReac Type Severity Reaction Status Date / Time ciprofloxacin Allergy Intermediate Verified 05/05/23 13:20 cephalexin Allergy Mild Verified 05/05/23 13:20 ciclopirox Allergy Mild Verified 05/05/23 13:20 methylprednisolone Allergy Mild SKIN RASH Verified 05/05/23 13:20 oxaprozin Allergy Mild Verified 05/05/23 13:20 phenazopyridine Allergy Mild Verified 05/05/23 13:20 tamsulosin Allergy Mild Verified 05/05/23 13:20 hydrocortisone Allergy Unknown SKIN RASH Verified 05/05/23 13:20 latex Allergy Unknown Verified 05/05/23 13:20 Beta-Blockers AdvReac Unknown DEPRESSION Verified 05/05/23 13:20 (Beta-Adrenergic Bloc lanolin AdvReac Unknown Verified 05/05/23 13:20 tetracycline AdvReac Unknown YEAST Verified 05/05/23 13:20 INFECTIONS fluconazole AdvReac blisters Verified 05/05/23 13:20 General Stated Complaint: Dizzy/Sync CARMITA: 3 Review of Systems All systems reviewed & are unremarkable except as noted in HPI and below Constitutional Constitutional: Denies headache(s) ENT Ears, Nose, Mouth, and Throat: Reports dizziness, Denies headache(s) and Reports disequilibrium Neurologic Neurologic: Reports as per HPI, Reports dizziness, Denies headache(s), Reports lack of coordination and Reports disequilibrium PFSH All Active Problems (Updated 05/04/23 @ 09:48 by Delfina Lopes MD, [place]) Abnormal CT of the head (Acute) Anxiety (Chronic) Dermatophytosis (Chronic) BX-neg. fungal; + spongiotic process + esinophils Diverticulosis of colon without diverticulitis (Chronic) SIGMOID (DR. ORQUIDEA MICHAEL) 12/29/11 Dream anxiety disorder (Acute) nightmares Essential hypertension (Chronic 07/18/13) Insomnia, unspecified (Chronic 05/25/17) Peptic reflux disease (Chronic) H.H. Lumbar pain (Acute) Dizziness (Acute) Sigmoid diverticulitis (Acute) Vitamin D deficiency (Acute 09/26/08) Rib pain (Acute 07/09/05) Knee pain (Acute 10/01/15) Acute prostatitis (Acute) Internal hemorrhoids (Acute) Muscle tenderness (Acute) Gastropathy (Acute) Decreased hearing (Acute) Bilateral sensorineural hearing loss (Acute) Rash (Acute) Hypomagnesemia (Acute) Thyroid goiter (Acute) Medical History Acute prostatitis elevated PSA-now normalized Anal fissure Anemia 07/09/96 Bowel habit changes Cataract 02/26/15 Chest pain neg MPI 06/16 Chest pain Discharge planning issues DVT prophylaxis Hematuria unspecified renal cysts per CT; s/p cysto Intestinal obstruction Knee pain 10/01/15 Meralgia paresthetica Pneumonia due to infectious organism 08/31/17 unspecified unilaterality, unspecified part of lung Rib pain 07/09/05 after episode w/bull Vertigo Vitamin D deficiency 09/26/08 Surgical History H/O colonoscopy (~07/2019) H/O rectal sphincterotomy (~07/2019) History of appendectomy Repair of inguinal hernia LEFT S/P inguinal hernia repair left Status post inguinal hernia repair Family History Mother , 93 Essential hypertension Father , 88 Heart disease Myocardial infarction Sister Breast cancer Paternal Grandfather Stroke Maternal Grandmother , OLD AGE at age 85. No problems noted. Paternal Grandmother Stroke Son No problems noted. Son No problems noted. Daughter No problems noted. Daughter No problems noted. Daughter No problems noted. Daughter No problems noted. Social History Smoking/Tobacco Use Status: Never Second Hand Exposure: No Smoking risk assessment performed?: Yes Alcohol Intake: current Alcohol Intake frequency: holidays/special occasions only Alcohol type: hard liquor Drug use: Rarely Caregiver/Support person: Yes Household members: spouse Housing: house Communication Needs: Hard of Hearing Do you need help understanding health information?: Always Pets and animals: No Sexually active: Yes Do you think of yourself as: straight/heterosexual Current gender identity: male What is your relationship status?: How often do you talk on the phone with friends or family?: once per week How often do you get together with friends or relatives?: once per week How often do you attend buddhism or buddhism services?: decline to answer Do you belong to any clubs or organized social groups?: decline to answer Panel score (0-1 are the most socially isolated patients): 1 What type of physical activity do you participate in: walking Duration: 45-60 minutes/day Frequency: 5-6 times per week Vilma/Hindu: Evangelical Seatbelt use: always Helmet use: Yes Helmet use: sometimes Drive intox or ride w/intox tractor trailer moving van driver: No Do you feel safe at home: Yes Do you feel safe in your relationship?: Yes Exam Narrative Exam Narrative: Constitutional: Alert and oriented x3. Appears stated age. Normal body habitus. Head: Normocephalic, no trauma. Eyes: Pupils PERRL, Red reflex noted, EOM's intact. Eyelids symmetrical without lesions, discharge, or swelling. ENT: Bilateral TM's WNL, External ear normal to inspection, no mastoid TTP, swelling, or erythema, Nasal turbinates WNL, no nasal discharge. Normal dentition, Posterior pharynx WNL, no exudate. Chest: RRR, Normal S1, S2, distal pulses intact. Resp: Lungs clear to auscultation bilaterally, no wheezes, rales, or rhonchi. Abdomen: Soft, non-distended, Normoactive bowel sounds all 4 quads. Musculoskeletal: Normal gait, 5/5 strength to all four extremities. Skin: No suspicious rashes or lesions. Capillary refill less than 2 sec. Neurologic: Cranial nerves II-XII intact. Alert and oriented x 3. Motor: No deficits noted. Sensory: Intact bilaterally all 4 extremities. Reflexes: DTR's intact bilaterally.. Hematologic/Lymphatic: No ecchymosis, no lymphadenopathy. Course Vital Signs Vital signs: Vital Signs Temperature 36.8 C 05/03/23 11:12 Pulse 75 05/03/23 11:12 Respiratory Rate 20 05/03/23 11:12 Blood Pressure 154/82 H 05/03/23 11:12 Pulse Oximetry 95 05/03/23 11:12 Temperature 36.8 C 05/03/23 11:12 Temperature Source Oral 05/03/23 11:12 Pulse 75 05/03/23 11:12 Respiratory Rate 20 05/03/23 11:12 Respiratory Effort Normal 05/03/23 11:20 Respiratory Depth Normal 05/03/23 11:20 Respiratory Pattern Normal 05/03/23 11:20 Blood Pressure 154/82 H 05/03/23 11:12 Blood Pressure Position Sitting 05/03/23 11:12 Pulse Oximetry 95 05/03/23 11:12
[2023-05-03 11:46] LABS: Abs Immature Grans 0.04 10^3/uL (0.0-0.06); Absolute Basophil Count 0.04 10^3/uL (0.0-0.2); Absolute Lymphocyte Count 1.14 10^3/uL (1.2-3.4); Absolute Monocyte Count 0.31 10^3/uL (0.1-0.8); Absolute Neutrophil Count 5.01 10^3/uL (1.2-6.7); Basophils % 0.6; HCT 51.5 % (40.0-50.0); HGB 16.6 g/dL (13.5-17.5); Immature Grans % 0.6; Lymphocytes % 16.9; MCH 28.6 pg (27.0-33.0); MCHC 32.2 % (32.0-36.0); MCV 89 fL (80-95); MPV 9.2 fL (8.0-11.0); Monocytes % 4.6; Neutrophils % 74.3; Platelet Count 207 10^3/uL (130-400); RDW 13.9 % (11.8-14.1); RDW-SD 45.1 fL; WBC 6.74 10^3/uL (4.4-10.8)
[2023-05-03 12:07] LABS: ALT 23 U/L (16-63); AST 13 U/L (15-37); Albumin 3.7 g/dL (3.4-5.0); Alkaline Phosphatase 78 U/L (46-116); BUN 16 mg/dL (7-18); Bilirubin, Total 0.7 mg/dL (0.2-1.0); CREATININE 1.2 mg/dL (0.70-1.30); Calcium 9.9 mg/dL (8.5-10.1); Chloride 102 mmol/L (98-107); Estimated GFR 60.38 (mL/min/1.73m2); Glucose 127 mg/dL (74-106); Magnesium 1.7 mg/dL (1.8-2.4); Potassium 4.1 mmol/L (3.5-5.1); Sodium 138 mmol/L (136-145); Total Protein 7.5 g/dL (6.4-8.2); Troponin I < 50 ng/L (<or=60)
[2023-05-03] MEDS: Magnesium Oxide 400 MG TAB PO (12:29)
[2023-05-03] MEDS: Omnipaque 350 MG/ML 100 ML BTL IJ (12:33)
[2023-05-03] MEDS: Normal Saline - Diluent 50 ML VIAL IJ ×2 (12:33→13:43)
[2023-05-03] MEDS: Normal Saline Flush 10 ML SYR IVP ×2 (12:33→13:43)
[2023-05-03 12:44] LABS: Bilirubin Negative (Negative); Blood Trace-intact (Negative); Clarity Clear (Clear); Glucose Negative (Negative); Ketones Negative (Negative); Leukocyte Esterase Negative (Negative); Nitrite Negative (Negative); Specific Gravity 1.015 (1.005-1.025); Urobilinogen 0.2 mg/dL (Up to 0.2)
[2023-05-03 12:51] LABS: Bacteria Rare HPF (Negative); C & S Indicated? No; Casts Negative LPF (Negative); Crystals Negative HPF (Negative); Epithelial Cells Few HPF (Negative); Mucus Trace (Negative); WBC 0-2 HPF (0-5)
[2023-05-03] MEDS: Normal Saline 500 ML IV (13:43)
--- NOTE | 2023-05-03 13:44 | DI.CT_ITS ---
Exam(s) CT BRAIN NECK CTA EXAM: CT BRAIN NECK CTA CLINICAL HISTORY: DIZZINESS, LOSS of Balance. TECHNIQUE: Imaging Protocol: Axial CT angiography was performed with multi-slice acquisition and mu lti-planar and/or 3D reconstructions. CONTRAST MATERIAL: Intravenous: Omnipaque 350. Contrast volume:165 mL COMPARISON: CT HEAD WITHOUT CONTRAST from 12/05/[address] ABDOMEN PELVIS W from 05/27/2019 FINDINGS: CT Head W/O and W: Ventricles and Extra axial spaces: Normal in size and morphology for the patient's age. Hemorrhage: None. Cerebral parenchyma: There are areas of decreased attenuation in the white matter consistent with sma ll vessel ischemic disease. There are few foci of hypointensity suggesting old lacunar infarcts. Midline shift: None. Brainstem/Cerebellum: Normal. Calvarium: Normal. Visualized Paranasal sinuses/Mastoids: Clear. Soft Tissues: Unremarkable. Enhancement: Unremarkable. CTA Neck W: Common Carotid: Right: No dissection, occlusion or significant stenosis. Left: No dissection, occlusion or significant stenosis. External Carotid: Right: No occlusion or significant stenosis. Left: No occlusion or significant stenosis. Internal Carotid: There is mild atherosclerosis at the proximal internal carotid arteries bilaterally . Right: No dissection, occlusion or significant stenosis. Left: No dissection, occlusion or significant stenosis. Vertebral Artery: Right: No dissection, occlusion or significant stenosis. Left: No dissection, occlusion or significant stenosis. Lung Apices: Normal. Bones: Within normal limits for the patient's age. Soft Tissues: Normal. Thyroid gland: The thyroid gland is markedly enlarged and heterogeneous extending into the superior m ediastinum. There is a 3.8 cm right thyroid mass. A nonemergent thyroid ultrasound is recommended f or further evaluation. There is resultant rightward deviation of the trachea. CTA Brain W: Internal Carotid Arteries: Atherosclerosis is present. No significant stenosis, occlusion or aneurys m. Anterior Cerebral Arteries: Right: No aneurysm, occlusion or significant stenosis. Left: No aneurysm, occlusion or significant stenosis. Middle Cerebral Arteries: Right: No aneurysm, occlusion or significant stenosis. Left: No aneurysm, occlusion or significant stenosis. Posterior Cerebral Arteries: Right: No aneurysm, occlusion or significant stenosis. Left: No aneurysm, occlusion or significant stenosis. Vertebral Arteries: Right: No aneurysm, occlusion or significant stenosis. Left: No aneurysm, occlusion or significant stenosis. Basilar Artery: No aneurysm, occlusion or significant stenosis. IMPRESSION: 1. No large vessel occlusion or significant stenosis on the CT angiography of the head. 2. No acute intracranial process. 3. No occlusion or significant stenosis on the CT angiography of the neck. 4. Enlarged thyroid gland with right thyroid nodule. Nonemergent thyroid ultrasound is recommended f or further evaluation. RADIATION DOSE DELIVERED: 1136.43 mGy.cm Total DLP DATA REPOSITORY: All CT scans at this facility are submitted to the National Radiology Data Registry (NRDR) Dose Index Registry (DIR) with the [employer] (A[employer]). RADIATION OPTIMIZATION: All CT scans at this facility use at least one of these dose optimization te chniques: automated exposure control; mA and/or kV adjustment per patient size (includes targeted exa ms where dose is matched to clinical indication); or iterative reconstruction.
--- NOTE | 2023-05-03 14:03 | DI.VRAD_ITS ---
PROCEDURE INFORMATION: Exam: CTA Head With Contrast, Arteriography Exam date and time: 05/03/2023 12:57 PM Age: 82 years old Clinical indication: Dizziness and giddiness; Patient HX: Double injection due to incorrect timing TECHNIQUE: Imaging protocol: Computed tomographic angiography of the head with contrast. Exam focused on the arteries. 3D rendering (Not supervised by radiologist): MIP and/or 3D reconstructed images were created by the technologist. Radiation optimization: All CT scans at this facility use at least one of these dose optimization techniques: automated exposure control; mA and/or kV adjustment per patient size (includes targeted exams where dose is matched to clinical indication); or iterative reconstruction. Contrast material: OMNI 350; Contrast volume: 165 ml; Contrast route: INTRAVENOUS (IV); COMPARISON: No relevant prior studies available. 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 Right middle cerebral artery: No occlusion or significant stenosis. No aneurysm. Right anterior cerebral artery: No occlusion or significant stenosis. No aneurysm. Left internal carotid artery: Moderate cavernous carotid disease on the left. Left middle cerebral artery: No occlusion or significant stenosis. No aneurysm. Left anterior cerebral artery: No occlusion or significant stenosis. No aneurysm. POSTERIOR CIRCULATION: Right vertebral artery: No occlusion or significant stenosis. No aneurysm. Left vertebral artery: No occlusion or significant stenosis. No aneurysm. Basilar artery: No occlusion or significant stenosis. No aneurysm. Right posterior cerebral artery: No occlusion or significant stenosis. No aneurysm. Left posterior cerebral artery: No occlusion or significant stenosis. No aneurysm. Veins: Venous contamination without venous thrombus. Brain: Diffuse involutional changes and white matter hypodensities consistent with age. These findings are most likely due to atrophy and small vessel disease. No acute hemorrhage or acute terratorial infarct. Vascular calcifications at the lumbee of Flor. No abnormal enhancement in the brain. Cerebral ventricles: No gross venticulomegaly. Orbital cavities: No acute abnormality. Mastoid air cells: Mastoids: No significant abnormality. Paranasal sinuses: No significant opacity or air fluid levels. Bones/joints: No acute fracture. Soft tissues: No significant abnormality. IMPRESSION: 1. No acute intracranial abnormality. 2. No large vessel occlusion in the ljstao-xt-Busxyo. PROCEDURE INFORMATION: Exam: CTA Neck With Contrast Exam date and time: 05/03/2023 12:57 PM Age: 82 years old Clinical indication: Dizziness and giddiness; Patient HX: Double injection due to incorrect timing TECHNIQUE: Imaging protocol: Computed tomographic angiography of the neck with contrast. 3D rendering (Not supervised by radiologist): MIP and/or 3D reconstructed images were created by the technologist. Radiation optimization: All CT scans at this facility use at least one of these dose optimization techniques: automated exposure control; mA and/or kV adjustment per patient size (includes targeted exams where dose is matched to clinical indication); or iterative reconstruction. Contrast material: OMNI 350; Contrast volume: 165 ml; Contrast route: INTRAVENOUS (IV); COMPARISON: No relevant prior studies available. FINDINGS: Right common carotid artery: No stenosis. No dissection or occlusion. Right internal carotid artery: Less than 20% narrowing the origin of the right internal carotid artery. Right external carotid artery: No occlusion or stenosis of the origin. Left common carotid artery: No stenosis. No dissection or occlusion. Left internal carotid artery: Less than 20% narrowing the origin of the left internal carotid artery. Left external carotid artery: No occlusion or stenosis of the origin. Right vertebral artery: Dominant right vertebral artery without significant stenosis. Left vertebral artery: No stenosis. No dissection or occlusion. Right subclavian artery: Gtmi-yn-psxpcixn disease at the origin of the right subclavian artery. Aorta: atherosclerotic changes of the thoracic aorta. Veins: No venous thrombus. Dental: A dental is patient. Lymph nodes: Small neck nodes without confluent lymphadenopathy. Soft tissues: Normal. No significant soft tissue swelling. Bones/joints: Degenerative changes are mild for age. Lungs: Heterogeneous aeration of the lungs. Mediastinal space: Heterogeneous enlarged thyroid extending into the mediastinum consistent with goiter. This displaces the trachea to the right. Ultrasound follow-up may be helpful in nonemergent fashion. IMPRESSION: 1. Mild internal carotid artery stenosis bilaterally by NASCET criteria. 2. Likely thyroid goiter. REFERENCES: NASCET CRITERIA. The degree of stenosis in the cervical segment of the internal carotid artery is based on NASCET criteria. Normal is no stenosis. Mild is less than 50% stenosis. Moderate is 50-69% stenosis. Severe is 70% to 99% stenosis. Total occlusion is no detectable patent lumen. Dictated and Authenticated by: Lazaro Lopez MD. Ordering:CARMEN Valero MD
[2023-05-03 14:43] LABS: TSH (W/Ref FT4) 0.63 uIU/mL (0.36-3.74)
[2023-05-03 14:45] LABS: Troponin I < 50 ng/L (<or=60)
[2023-05-03 15:12] LABS: Lab Add On Test DONE
== END 2023-05-03 15:06 | disposition home or self-care (01) ==
PROVIDERS: Emergency Provider Registered Nurse Emergency; PCP Family Medicine
DX: R42 Dizziness and giddiness (principal); R26.89 Other abnormalities of gait and mobility; E83.42 Hypomagnesemia; E04.9 Nontoxic goiter, unspecified; F41.9 Anxiety disorder, unspecified; Z79.899 Other long term (current) drug therapy; I65.23 Occlusion and stenosis of bilateral carotid arteries
CPT/HCPCS: 36415; 70496; 70498; 80053; 93005; 96360; 99285; 81003; 81015; 83735; 84443; 84484; 85025; 93010; 99284; J3490

== ENCOUNTER → 2023-05-07 03:45 | Outpatient (CLI) | payer MEDICARE, OTHER, SELFPAY ==
--- NOTE | 2023-05-07 07:00 | DI.US_ITS ---
Exam(s) US THYROID EXAM: US THYROID CLINICAL HISTORY: abnl ct head and neck,R93.0, RT THYROID NODULE. TECHNIQUE: Ultrasound thyroid performed using standard protocol. COMPARISON: No exams were available for comparison FINDINGS: Both thyroid lobes are somewhat prominent in size. RIGHT THYROID LOBE: Measures 3.3 cm AP x 4.4 cm wide x 5.6 cm craniocaudal LEFT THYROID LOBE: Measures 3 cm APx 4.4 cm wide x 5.3 cm craniocaudal The echotexture of both lobes is heterogeneous but there appear to be probable nodules here. I feel this is difficult to interpret from just the images alone and I request that this patient return for repeat scanning with the radiologist in the room to determine if this is truly the echo-pattern or th ere are predominant large nodules with a very small amount of remaining parenchymal tissue. This should be performed at no charge to the patient. IMPRESSION: As above. DATA REPOSITORY:
== END ==
PROVIDERS: PCP Family Medicine; Visit Provider Family Medicine
DX: R93.0 Abnormal findings on diagnostic imaging of skull and head, not elsewhere classified (principal)
CPT/HCPCS: 76536

== ENCOUNTER → 2023-05-13 02:59 | Outpatient (CLI) | payer MEDICARE, OTHER, SELFPAY ==
--- NOTE | 2023-05-13 07:45 | DI.US_ITS ---
Exam(s) US THYROID EXAM: US THYROID CLINICAL HISTORY: F/U 05/07,ABNL CT OF HEAD,R93.0. TECHNIQUE: Ultrasound thyroid performed using standard protocol. COMPARISON: CT CT BRAIN NECK CTA from 05/03/2023 US US THYROID from 05/07/[address] angiography of the neck performed 05/03/2023 which revealed significantly enlarged t hyroid gland. FINDINGS: Thyroid study was repeated with myself present in the ultrasound suite. Cine acquisitions were also obtained in both transverse and oblique planes of both lobes. Both thyroid lobes are enlarged and indeed the entire left thyroid lobe cannot be fully measure by ul trasound as it extends below the clavicle into the mediastinum as seen on the recent CT scan. When r eviewing the CT scan the larger left lobe measures 6.2 cm AP by 4.5 cm wide by 7.2 cm cephalocaudal a nd extends into the mediastinum to the level of the patent innominate vein. The isthmus is thickened to 11 mm. The right lobe measures 4.5 cm AP by 4 cm wide by 6.5 cm cephalocaudal. The echotexture of the entire gland is inhomogeneous and multinodular with essentially no normal appe aring parenchyma in the gland. The appearance is consistent with a large multinodular goiter. LYMPH NODES: There is no significant adenopathy. A small benign-appearing 7 x 4 mm lymph node is note d in the left jugular chain. IMPRESSION: Abnormally enlarged thyroid gland with measurements as above and which has appearance of a multinodul ar goiter. As seen on recent CT angiogram of 05/03/2023 the large left lobe extends caudally into th e mediastinum and mildly deviates the trachea towards the right side. There is no significant adenopathy. DATA REPOSITORY:
== END ==
PROVIDERS: PCP Family Medicine; Visit Provider Family Medicine
DX: E04.2 Nontoxic multinodular goiter (principal)
CPT/HCPCS: 76536

== ENCOUNTER → 2023-06-02 02:04 | Outpatient (CLI) | payer MEDICARE, OTHER, SELFPAY ==
--- NOTE | 2023-06-01 12:30 | PAPNONF_PTH ---
PATIENT: Brian Siddiqui LOC: [facility] U#:[id number] AGE/SX: 84/M ROOM: RE06/02/[address]: Danielle Her : 1940 BED: DIS: SPEC #: [id number] RECD: 06/02/23 12:59 STATUS: TRAE REDony #: [id number] LIVIA: 06/01/23 12:[address]: Danielle Her DEPT: [facility] Cytology RECD BY: Gloria Lopez ENTERED: 06/02/23 13:01 SP TYPE: MOR LILLY DR: Delfina Lopes MD, DC Tissues: 1 - BODY FLUID CYTO-FINE NEEDLE ASPIRATE-[facility] Procedures: BODY FLUID CYTO-FINE NEEDLE ASPIRATE-[facility] Comments: [id number] (PATH FNA CONSULT) (REFRIGERATED)
--- NOTE | 2023-06-02 08:00 | DI.US_ITS ---
Exam(s) US NEEDLE LOCAL OTHER WO RAD EXAM: US NEEDLE LOCAL OTHER WO RAD CLINICAL HISTORY: goiter,e04.9,ultrasound guided bx. COMPARISON: US US THYROID from 05/13/2023 TECHNIQUE: Ultrasound guidance provided by the cardiopulmonary technologist during ultrasound-guided FNA performed by Dr. Hernandez. Please refer to recent ultrasound report of 05/13/2023. FINDINGS: IMPRESSION: Ultrasound-guided thyroid FNA. DATA REPOSITORY:
--- NOTE | 2023-06-02 12:45 | OPPNE_ITS ---
Date of service: 06/02/23 Time of Service: 12:45 Procedure Note Date of procedure: 06/02/23 Procedure: Ultrasound-guided FNA, right thyroid lobe, pathology present Procedure Diagnosis: Thyroid goiter Procedure Indications: The patient has a fairly new onset thyroid goiter. This is displacing his trachea but not compressing it. Options were explained to the patient regarding further management. He elected to undergo FNA to better understand the process that is occurring. Risks and benefits were discussed at length. Consent was filled out and signed prior to the procedure Procedure Description: The patient was positioned in supine position and prepped and draped in appropriate fashion. His neck was slightly extended. Ultrasound was used to localize the thyroid, and both sides of the thyroid were examined. There was more nodular appearing section within the right thyroid lobe. As such, the decision was made to biopsy this area. 1% lidocaine with 1/100,000 epinephrine was injected in the skin and subcutaneous tissues overlying the nodule. A 25- gauge needle was then passed repeatedly into the right thyroid nodule. A total of 3 passes were made. The third 1 was checked for cellularity and cellularity was felt to be adequate. Following this, 2 additional passes were made with a 25-gauge needle for Afirma testing if it needs to be done. Wound was then inspected throughout the hemostasis, and then a sterile dressing was applied. The patient was then allowed to sit and stand. His vital signs remained stable. He will remove the bandage tonight and not replace it. He will call with any signs of infection or any concerns. He will call if he does not hear from me within a week with regard to pathology results. He had no further questions. He is comfortable with this plan.
== END ==
PROVIDERS: PCP Family Medicine; Visit Provider Registered Nurse Maternal Newborn
DX: E04.1 Nontoxic single thyroid nodule (principal)
CPT/HCPCS: 10005; 76942; 88104

== ENCOUNTER 2023-08-25 14:59 | Outpatient (CLI) | payer MEDICARE, OTHER, SELFPAY ==
[2023-08-25 11:34] LABS: Abs Immature Grans 0.02 10^3/uL (0.0-0.06); Absolute Basophil Count 0.03 10^3/uL (0.0-0.2); Absolute Eosinophil Count 0.05 10^3/uL (0.0-0.7); Absolute Lymphocyte Count 1.03 10^3/uL (1.2-3.4); Absolute Monocyte Count 0.46 10^3/uL (0.1-0.8); Absolute Neutrophil Count 6.62 10^3/uL (1.2-6.7); Basophils % 0.4; Eosinophils % 0.6; HCT 50.7 % (40.0-50.0); HGB 16.5 g/dL (13.5-17.5); Immature Grans % 0.2; Lymphocytes % 12.5; MCH 28.8 pg (27.0-33.0); MCHC 32.5 % (32.0-36.0); MCV 89 fL (80-95); MPV 9.3 fL (8.0-11.0); Monocytes % 5.6; Neutrophils % 80.7; Platelet Count 221 10^3/uL (130-400); RBC 5.73 10^6/uL (4.36-5.78); WBC 8.21 10^3/uL (4.4-10.8)
[2023-08-25 12:37] LABS: FREE T4 1.19 ng/dL (0.76-1.46)
[2023-08-25 18:26] LABS: T3,Free 4.5 pg/mL (2.8-5.3)
== END 2023-08-25 15:00 | disposition home or self-care (01) ==
LOC: LBO 15:01
PROVIDERS: PCP Family Medicine; Visit Provider Otolaryngology
DX: D34 Benign neoplasm of thyroid gland (principal); R53.83 Other fatigue
CPT/HCPCS: 36415; 84439; 84481; 85025

== ENCOUNTER 2023-10-08 10:42 | Outpatient (CLI) | payer MEDICARE, OTHER, SELFPAY ==
[2023-10-08 10:55] LABS: HGB 16.2 g/dL (13.5-17.5); MCH 29.1 pg (27.0-33.0); MCHC 33.1 % (32.0-36.0); MCV 88 fL (80-95); MPV 9.4 fL (8.0-11.0); Platelet Count 215 10^3/uL (130-400); RBC 5.56 10^6/uL (4.36-5.78); RDW-SD 45.3 fL; WBC 8.27 10^3/uL (4.4-10.8)
== END 2023-10-08 10:43 | disposition home or self-care (01) ==
LOC: LBO 10:49
PROVIDERS: PCP Family Medicine; Visit Provider Family Medicine
DX: K62.5 Hemorrhage of anus and rectum (principal)
CPT/HCPCS: 36415; 85027

== ENCOUNTER → 2024-01-18 05:09 | Outpatient (CLI) | payer MEDICARE, OTHER, SELFPAY ==
--- NOTE | 2024-01-18 07:45 | DI.MRI_ITS ---
Exam(s) MR IAC BRAIN WO/W EXAM: MR IAC BRAIN WO/W CLINICAL HISTORY: vertigo,r42 TECHNIQUE: Multiplanar multisequence MRI of the brain was performed. Both noninfused and contrast i nfused sequences were performed. IV Contrast injected was 17 cc Dotarem. COMPARISON: CT CT BRAIN NECK CTA from 05/03/2023 FINDINGS: CEREBRAL PARENCHYMA: No evidence of intracranial hemorrhage, mass effect nor shift of midline structu re. No extraaxial fluid collections. Ventricles are not enlarged nor shifted. There is no significant focal signal abnormality in the cerebellar hemispheres nor within the vicki, m idbrain, and thalami. There are few small nonspecific foci of FLAIR bright signal abnormality in the bilateral periventricu lar white matter, not associated with hemorrhage nor surrounding edema nor restricted diffusion and n ot exhibiting enhancement following contrast injection. There is also a small lacunar infarct DWI: No areas of restricted diffusion to suggest acute ischemic event. SWI: No microhemorrhages evident. IAC'S: There is no evidence of mass in the cerebellopontine angles and no evidence of enhancing intra canalicular mass within the internal auditory canals. The 7th and 8th cranial nerves appear unremar kable within the bilateral internal auditory canals. There are no ring enhancing lesions in the brain. There is no abnormal meningeal enhancement. PITUITARY GLAND: No mass nor parasellar abnormality. No obvious abnormality in the cavernous sinuses. FLOW VOIDS: The expected flow void are noted. No evidence of obvious aneurysm nor obvious vascular ma lformation. PARANASAL SINUSES: The visualized paranasal sinuses appear unremarkable. ORBITS: No obvious abnormal findings. IMPRESSION: 1. No evidence of acoustic neuroma/schwannoma. The 7th and 8th cranial nerves appear unremarkable wi thin the bilateral internal auditory canals. 2. There are multiple small foci of periventricular white matter signal abnormality consistent with chronic small-vessel white matter ischemic changes. No evidence of restricted diffusion to suggest a cute ischemic event. 3. No abnormal enhancing intracranial findings. There are no ring enhancing lesions in the brain and there is no abnormal meningeal enhancement. DATA REPOSITORY:
[2024-01-18 12:26] LABS: CREATININE 1.2 mg/dL (0.70-1.30)
[2024-01-18] MEDS: Gadoterate meglumine 20 ML VIAL IVP (12:30)
[2024-01-18] MEDS: Normal Saline Flush 10 ML SYR IVP (12:32)
== END ==
PROVIDERS: PCP Family Medicine; Visit Provider Registered Nurse Maternal Newborn
DX: R42 Dizziness and giddiness (principal)
CPT/HCPCS: 70553; 82565

== ENCOUNTER 2024-05-16 10:07 | Outpatient (CLI) | payer MEDICARE, OTHER, SELFPAY ==
[2024-05-16 13:06] LABS: ALT 28 U/L (16-63); AST 17 U/L (15-37); Albumin 3.9 g/dL (3.4-5.0); Alkaline Phosphatase 85 U/L (46-116); Anion Gap 10.5 mmol/L (3-11); BUN 16 mg/dL (7-18); Bilirubin, Total 0.57 mg/dL (0.2-1.0); CO2 26.5 mmol/L (21.0-32.0); CREATININE 1.2 mg/dL (0.70-1.30); Calcium 10.4 mg/dL (8.5-10.1); Chloride 107 mmol/L (98-107); Glucose 109 mg/dL (74-106); Potassium 4.2 mmol/L (3.5-5.1); Sodium 144 mmol/L (136-145); Total Protein 7.8 g/dL (6.4-8.2)
== END 2024-05-16 10:08 | disposition home or self-care (01) ==
LOC: LOS 10:08
PROVIDERS: PCP Family Medicine; Referring Provider Family Medicine; Visit Provider Family Medicine
DX: I10 Essential (primary) hypertension (principal); F41.9 Anxiety disorder, unspecified
CPT/HCPCS: 36415; 80053

== ENCOUNTER → 2024-08-17 13:44 | Outpatient (BNVA) | payer MEDICARE, OTHER, SELFPAY | PROVIDERS: PCP Family Medicine; Referring Provider Registered Nurse Maternal Newborn; Visit Provider Psychiatry & Neurology Neurology | DX: R51.9 Headache, unspecified (principal); R42 Dizziness and giddiness; M54.2 Cervicalgia | CPT/HCPCS: 99215 ==

== ENCOUNTER 2024-09-28 08:15 | Emergency (ER) | payer MEDICARE, OTHER, SELFPAY ==
[2024-09-28] VITALS (23 sets, daily range): BP systolic 99–137; BP diastolic 76–88; PULSE 80–103; RESP 14–26; TEMP 36.7; O2SAT 91–95
--- NOTE | 2024-09-28 08:45 | DI.RAD_ITS ---
Exam(s) XR HIP RT COMPLETE AP PELVIS EXAM: XR HIP RT COMPLETE AP PELVIS CLINICAL HISTORY: pain right hip and pelvis post fall. TECHNIQUE: 2D digital imaging was performed of the right hip. Two images were obtained. AP pelvis a nd lateral right hip views were obtained. COMPARISON: No exams were available for comparison FINDINGS: BONES: No acute fracture is present. No bony destructive lesion is seen. JOINTS: No dislocation present. SOFT TISSUE: There is contrast in the urinary bladder from the patient's CT examination performed the same day. IMPRESSION: No acute fracture or dislocation. DATA REPOSITORY: RADIATION DOSE DELIVERED:
--- NOTE | 2024-09-28 09:00 | DI.CT_ITS ---
Exam(s) CT BRAIN NECK CTA EXAM: CT BRAIN NECK CTA CLINICAL HISTORY: neck pain. TECHNIQUE: Imaging Protocol: Axial CT angiography was performed with multi-slice acquisition and mu lti-planar and/or 3D reconstructions. CONTRAST MATERIAL: Intravenous: Omnipaque 350 contrast volume:70 mL COMPARISON: CT CT BRAIN NECK CTA from 05/03/2023 FINDINGS: CT Head W/O and W: Ventricles and Extra axial spaces: Normal in size and morphology for the patient's age. Hemorrhage: None. Cerebral parenchyma: There are areas of decreased attenuation in the white matter most consistent wit h chronic microvascular ischemic disease. No mass effect is identified. Midline shift: None. Brainstem/Cerebellum: Normal. Calvarium: Normal. Visualized Paranasal sinuses/Mastoids: Clear. Soft Tissues: Unremarkable. Enhancement: Unremarkable. CTA Neck W: Common Carotid: Right: No dissection, occlusion or significant stenosis. The right common carotid artery is displace d secondary to the enlarged thyroid gland. There is mild atherosclerosis seen distally. Left: No dissection, occlusion or significant stenosis. Atherosclerotic calcification is seen distal ly. External Carotid: Right: No occlusion or significant stenosis. Left: No occlusion or significant stenosis. Internal Carotid: Right: No dissection, occlusion or significant stenosis. Left: No dissection, occlusion or significant stenosis. Vertebral Artery: Right: No dissection, occlusion or significant stenosis. Left: No dissection, occlusion or significant stenosis. Lung Apices: Normal. Soft Tissues: Normal. Thyroid gland: There is a markedly enlarged multinodular thyroid gland. The left lobe extends into t he superior mediastinum deviating the trachea to the right. Nonemergent thyroid ultrasound should be considered for further evaluation. CTA Brain W: Internal Carotid Arteries: Atherosclerotic calcification is seen in the cavernous portions of the int ernal carotid arteries bilaterally. No aneurysm, occlusion or significant stenosis is present. Anterior Cerebral Arteries: Right: No aneurysm, occlusion or significant stenosis. Left: No aneurysm, occlusion or significant stenosis. Middle Cerebral Arteries: Right: No aneurysm, occlusion or significant stenosis. Left: No aneurysm, occlusion or significant stenosis. Posterior Cerebral Arteries: Right: No aneurysm, occlusion or significant stenosis. Left: No aneurysm, occlusion or significant stenosis. Vertebral Arteries: Right: No aneurysm, occlusion or significant stenosis. Left: No aneurysm, occlusion or significant stenosis. Basilar Artery: No aneurysm, occlusion or significant stenosis. IMPRESSION: 1. No large vessel occlusion or significant stenosis on the CT angiography of the head. 2. No acute intracranial process. 3. No occlusion or significant stenosis on the CT angiography of the neck. RADIATION DOSE DELIVERED: 2,120.19mGy.cm Total DLP DATA REPOSITORY: All CT scans at this facility are submitted to the National Radiology Data Registry (NRDR) Dose Index Registry (DIR) with the [employer] (ACR). RADIATION OPTIMIZATION: All CT scans at this facility use at least one of these dose optimization te chniques: automated exposure control; mA and/or kV adjustment per patient size (includes targeted exa ms where dose is matched to clinical indication); or iterative reconstruction.
--- NOTE | 2024-09-28 09:00 | DI.CT_ITS ---
Exam(s) CT CHEST/ABD/PEL W EXAM: CT CHEST/ABD/PEL W CLINICAL HISTORY: fall shortness of breath, back pain, r pelvic/hip TECHNIQUE: Imaging Protocol: Axial computed tomography images with coronal and sagittal reformatted images were created and reviewed. Lung Computer Aided Detection (CAD) was utilized. CONTRAST MATERIAL: Intravenous: Omnipaque 350 contrast volume:75 mL Oral: No COMPARISON: CT ABD PELVIS WITH CONTRAST from 12/02/[address] ABDOMEN PELVIS W from 05/27/2019 CR XR HIP RT COMPLETE AP PELVIS from 09/28/[address] THORACIC LUMBAR SPINE REC from 09/28/2024 FINDINGS: CHEST: Tracheobronchial tree: The trachea is deviated to the right due to the enlarged nodular thyroid gland . No evidence of bronchiectasis. Pulmonary parenchyma: No consolidation or dominant measurable mass. There is dependent atelectasis in the lung bases. Visualized thyroid gland: The thyroid gland is markedly enlarged, left greater than right. The left lobe extends into the superior mediastinum and causes rightward deviation of the trachea. The thyroi d gland is multinodular. There is a 3 cm nodule in the right lobe. The patient had prior thyroid ul trasounds dating 2022. Follow-up as clinically appropriate. Mediastinum and Lexus: No dominant adenopathy or fluid collection. The esophagus is unremarkable. Pleura: No effusion or pneumothorax. Heart: Mild cardiomegaly. Coronary artery calcification is present. No pericardial effusion. Pulmonary arteries: Due to the timing of the bolus, pulmonary artery opacification is suboptimal jonatan pherally. No large central pulmonary embolism is present. Aorta: Thoracic aorta non-dilated. Atherosclerotic calcification is present. No evidence of dissecti on. Lymph nodes: Within normal limits. Soft tissues: Unremarkable. Bones:Within normal limits for the patient's age. There are marked degenerative changes seen in the shoulders bilaterally. No displaced rib fractures are identified. ABDOMEN: Liver: Normal density. There is a stable cyst seen in the liver. No suspicious hepatic masses are se en. No hepatic lacerations are present. Portal, Superior Mesenteric, and Splenic Veins: Unremarkable. Gallbladder and Biliary Tract: Cholelithiasis. No biliary ductal dilatation. Pancreas: Normal density, no abnormal calcifications or inflammatory process. Spleen: Normal. Adrenals: No masses seen. Kidneys: Normal size, contour and axis. No radiodense stones or obstructive uropathy. There are simpl e bilateral renal cysts. No follow-up is recommended. No suspicious renal masses are seen. Abdominal Aorta: Abdominal portion non-dilated. Atherosclerotic calcification is present. Bowel: There is diverticulosis of the colon, but no evidence of acute diverticulitis. There is eccen tric thickening of the wall of the ascending colon posteriorly. It extends into the cecum and measur es approximately 6 cm in length. Neoplasm should be considered. No evidence of appendicitis. No ev idence of bowel obstruction. Peritoneal Cavity: No ascites, collection or mesenteric inflammatory response. No free air. Lymph Nodes: Within normal limits. Bones: Within normal limits for the patient's age. Soft Tissues: There is mild edema seen in the soft tissues adjacent to the right hip. There is a sma ll fat containing umbilical hernia. PELVIS: Bladder: Symmetric distention, no gross wall thickening. Reproductive Organs: The prostate gland is markedly enlarged. Lymph Nodes: Within normal limits. Bones: Within normal limits. IMPRESSION: 1. No acute pulmonary process. 2. Enlarged heterogeneous nodular thyroid gland. Follow-up as clinically appropriate. This may incl ude a thyroid ultrasound. 3. No acute abdominal or pelvic organ injury. 4. Eccentric thickening of the wall of the ascending colon posteriorly extending into the cecum. Dewayne plasm should be considered. Follow-up with barium enema or colonoscopy is recommended. 5. Mild edema in the soft tissues adjacent to the right hip without evidence of fracture. Unexpected findings RADIATION DOSE DELIVERED: 881.15mGy.cm Total DLP DATA REPOSITORY: All CT scans at this facility are submitted to the National Radiology Data Registry (NRDR) Dose Index Registry (DIR) with the [employer] (ACR). RADIATION OPTIMIZATION: All CT scans at this facility use at least one of these dose optimization te chniques: automated exposure control; mA and/or kV adjustment per patient size (includes targeted exa ms where dose is matched to clinical indication); or iterative reconstruction.
--- NOTE | 2024-09-28 09:00 | RT.EKG_ITS ---
APPROVED REPORT Exam: Resting ECG Reason for Exam: dizzy Patient Location: E HR:97 bpm ECG Measurements Heart Rate 97 AXIS TX 227 P 43 QRSd 95 QRS -46 QT 346 T 46 QTc 441 Conclusion Sinus rhythm...normal P axis, V-rate 60- 99 Prolonged TX interval...TX >215, V-rate 91-120 Left anterior fascicular block...axis(240,-40), init forces inf Physician: no stemi
--- NOTE | 2024-09-28 09:04 | DI.CT_ITS ---
Exam(s) CT CERVICAL SPINE RECONS EXAM: CT CERVICAL SPINE RECONS CLINICAL HISTORY: fall, [place], neck pain, dizzy. TECHNIQUE: Imaging Protocol: Axial computed tomography images with coronal and sagittal reformatted images were created and reviewed COMPARISON: CT CT BRAIN NECK CTA from 09/28/2024 FINDINGS: Bones: No acute fracture or subluxation. Age-appropriate degenerative changes are seen in the cervica l spine. Soft Tissues: There is again seen an enlarged multinodular thyroid gland. The left lobe extends into the superior mediastinum and causes rightward tracheal deviation. Lung Apices: Clear. IMPRESSION: No acute fracture or subluxation in the cervical spine. RADIATION DOSE DELIVERED: Total DLP DATA REPOSITORY: All CT scans at this facility are submitted to the National Radiology Data Registry (NRDR) Dose Index Registry (DIR) with the [employer] (ACR). RADIATION OPTIMIZATION: All CT scans at this facility use at least one of these dose optimization te chniques: automated exposure control; mA and/or kV adjustment per patient size (includes targeted exa ms where dose is matched to clinical indication); or iterative reconstruction.
--- NOTE | 2024-09-28 09:08 | DI.CT_ITS ---
Exam(s) CT THORACIC LUMBAR SPINE REC EXAM: CT THORACIC LUMBAR SPINE REC CLINICAL HISTORY: fall, injury. TECHNIQUE: Imaging Protocol: Axial computed tomography images with coronal and sagittal reformatted images were created and reviewed. COMPARISON: CT CT CHEST/ABD/PEL W from 09/28/2024 FINDINGS: Bones: No fractures or dislocations are seen. The alignment of the spine is normal including the cerv icothoracic junction and the thoracolumbar junction. There are age-appropriate degenerative changes seen in the spine. There is fusion of the L3 and L4 vertebral bodies. Soft tissues: The soft tissues are unremarkable. No large disk herniations are identified. IMPRESSION: No acute fracture or subluxation in the thoracic or lumbar spine. RADIATION DOSE DELIVERED: 881.15mGy.cm Total DLP DATA REPOSITORY: All CT scans at this facility are submitted to the National Radiology Data Registry (NRDR) Dose Index Registry (DIR) with the [employer] ([employer]). RADIATION OPTIMIZATION: All CT scans at this facility use at least one of these dose optimization te chniques: automated exposure control; mA and/or kV adjustment per patient size (includes targeted exa ms where dose is matched to clinical indication); or iterative reconstruction.
[2024-09-28 09:35] LABS: Abs Immature Grans 0.06 10^3/uL (0.0-0.06); Absolute Basophil Count 0.02 10^3/uL (0.0-0.2); Absolute Eosinophil Count 0.14 10^3/uL (0.0-0.7); Absolute Lymphocyte Count 0.84 10^3/uL (1.2-3.4); Absolute Monocyte Count 0.57 10^3/uL (0.1-0.8); Absolute Neutrophil Count 7.92 10^3/uL (1.2-6.7); Basophils % 0.2 %; Eosinophils % 1.5 %; HCT 48.7 % (40.0-50.0); Immature Grans % 0.6 %; Lymphocytes % 8.8 %; MCH 28.9 pg (27.0-33.0); MCHC 32.9 % (32.0-36.0); MCV 88 fL (80-95); MPV 9.3 fL (8.0-11.0); Neutrophils % 82.9 %; Platelet Count 219 10^3/uL (130-400); RBC 5.53 10^6/uL (4.36-5.78); RDW 13.6 % (11.8-14.1); RDW-SD 44.2 fL; WBC 9.55 10^3/uL (4.4-10.8)
[2024-09-28] MEDS: ACETAMINOPHEN 500 MG/50 ML BAG 200 MG IVPB (09:37)
[2024-09-28 10:09] LABS: ALT 29 U/L (16-63); AST 16 U/L (15-37); Albumin 3.6 g/dL (3.4-5.0); Alkaline Phosphatase 86 U/L (46-116); Anion Gap 7.4 mmol/L (3-11); BUN 16 mg/dL (7-18); Bilirubin, Total 0.59 mg/dL (0.2-1.0); CO2 27.6 mmol/L (21.0-32.0); CREATININE 1.2 mg/dL (0.70-1.30); Calcium 9.8 mg/dL (8.5-10.1); Chloride 106 mmol/L (98-107); Glucose 158 mg/dL (74-106); Magnesium 1.6 mg/dL (1.8-2.4); Potassium 4.1 mmol/L (3.5-5.1); Sodium 141 mmol/L (136-145); TSH (W/Ref FT4) 0.37 uIU/mL (0.36-3.74)
[2024-09-28] MEDS: Normal Saline - Diluent 50 ML VIAL IJ ×2 (10:14→10:18)
[2024-09-28] MEDS: Omnipaque 350 MG/ML 100 ML BTL IJ (10:18)
[2024-09-28] MEDS: Omnipaque 350 MG/ML 50 ML BTL IJ (10:22)
[2024-09-28 11:29] LABS: Bilirubin Negative (Negative); Blood Trace-intact (Negative); Clarity Clear (Clear); Glucose Negative (Negative); Ketones Negative (Negative); Leukocyte Esterase Negative (Negative); Nitrite Negative (Negative); Urobilinogen 0.2 mg/dL (Up to 0.2); pH 5.5 (5-8)
[2024-09-28] MEDS: Lactated Ringers 1,000 ML 500 ML IV (11:42)
[2024-09-28 11:51] LABS: Bacteria Rare HPF (Negative); Casts Negative LPF (Negative); Crystals Negative HPF (Negative); Epithelial Cells Negative HPF (Negative); Mucus Negative (Negative); WBC 0-2 HPF (0-5)
[2024-09-28 11:52] LABS: C & S Indicated? No
--- NOTE | 2024-09-28 12:37 | W.ED.GENAD ---
Discharge Plan Disposition Patient Disposition: Home Discharge Details Clinical Impression: Head injury, Contusion of hip, Colon wall thickening Primary Care Provider: Delfina Lopes ED Provider: Gloria Gonzalez Home Meds and New Rx's Prescriptions: Continued citalopram 20 mg tablet 20 mg PO DAILY Qty: 90 11RF Rx Instructions: note dose reduction lisinopril 5 mg tablet 5 mg PO DAILY Qty: 90 3RF omeprazole 20 mg capsule,delayed release(DR/EC) 20 mg PO DAILY Qty: 90 3RF Rx Instructions: aware; please fill trazodone 50 mg tablet 50 mg PO QHS Qty: 90 4RF sennosides [Senokot] 1 TAB tablet 2 tab PO DAILY Discharge Instructions Instructions: Head injury in adults, Hip Pain ED Additional Instructions: skip your blood pressure medication today (lisinopril) have your blood pressure rechecked tomorrow apply topical pain relief to hip use your cane for ambulation tylenol per pkg instructions follow-up with surgery for colonoscopy return earlier should you have persistent or worsening pain Referrals: Delfina Lopes MD, [place] [Primary Care Provider] - 1 day HPI General Date/Time Provider Initiated Documentation: 09/28/24 08:24. HPI Narrative: The patient is an 83-year-old male with a history of hypertension and hyperlipidemia, presenting after a fall yesterday at the pharmacy. He reports losing his balance, hitting his right head on the corner of a wall, and injuring his right hip. He did not lose consciousness. He does not experience any current dizziness but has persistent headache and head pain, which worsen with movement. Related Data Home Medications ?Medication ?Instructions ?Recorded ?Confirmed sennosides 8.6 mg tablet (Senokot) 2 tab PO DAILY 12/05/13 09/28/24 citalopram 20 mg tablet 20 mg PO DAILY #90 tab-caps 05/16/24 09/28/24 lisinopril 5 mg tablet 5 mg PO DAILY #90 tab-caps 05/16/24 09/28/24 omeprazole 20 mg capsule,delayed 20 mg PO DAILY #90 tabs 05/16/24 09/28/24 release trazodone 50 mg tablet 50 mg PO QHS #90 tabs 08/16/24 09/28/24 Previous Rx's ?Medication ?Instructions ?Recorded citalopram 20 mg tablet 20 mg PO DAILY #90 tab-caps 05/16/24 lisinopril 5 mg tablet 5 mg PO DAILY #90 tab-caps 05/16/24 omeprazole 20 mg capsule,delayed 20 mg PO DAILY #90 tabs 05/16/24 release trazodone 50 mg tablet 50 mg PO QHS #90 tabs 08/16/24 Allergies Allergy/AdvReac Type Severity Reaction Status Date / Time ciprofloxacin Allergy Intermediate Unknown Verified 09/28/24 08:43 cephalexin Allergy Mild UNKNOWN Verified 09/28/24 08:43 ciclopirox Allergy Mild UNKNOWN Verified 09/28/24 08:43 methylprednisolone Allergy Mild SKIN RASH Verified 09/28/24 08:43 oxaprozin Allergy Mild UNKNOWN Verified 09/28/24 08:43 phenazopyridine Allergy Mild UNKNOWN Verified 09/28/24 08:43 tamsulosin Allergy Mild UNKNOWN Verified 09/28/24 08:43 hydrocortisone Allergy Unknown SKIN RASH Verified 09/28/24 08:43 latex Allergy Unknown UNKNOWN Verified 09/28/24 08:43 Beta-Blockers AdvReac Unknown DEPRESSION Verified 09/28/24 08:43 (Beta-Adrenergic Bloc lanolin AdvReac Unknown Skin Rash Verified 09/28/24 08:43 tetracycline AdvReac Unknown YEAST Verified 09/28/24 08:43 INFECTIONS fluconazole AdvReac blisters Verified 09/28/24 08:43 General Stated Complaint: HeadInjury CARMITA: 3 Exam Narrative Exam Narrative: General Appearance: The patient is alert and oriented x4. Vital signs: Within normal limits. HEENT: Pupils are equal, round, and reactive to light and accommodation. Tympanics are clear bilaterally. Respiratory: Lungs are clear to auscultation. No respiratory distress. Gastrointestinal: Mild right lower quadrant tenderness in the abdomen. No CVA tenderness. Back, Musculoskeletal: There is tenderness in the cervical spine. Extremities: The patient is ambulatory with an antalgic gait. Neurovascularly intact to right lower extremity. Tenderness in the right hip. No tenderness in the right knee. Skin: Warm and dry, no rash. Neurological: Normal. Course Vital Signs Vital signs: Vital Signs Temperature 36.7 C 09/28/24 08:33 Pulse 98 H 09/28/24 08:33 Respiratory Rate 20 09/28/24 08:33 Blood Pressure 124/83 09/28/24 08:33 Pulse Oximetry 93 09/28/24 08:33 Temperature 36.7 C 09/28/24 08:33 Temperature Source Oral 09/28/24 08:33 Pulse 84 09/28/24 12:26 Pulse 86 09/28/24 11:20 Respiratory Rate 14 09/28/24 12:26 Respiratory Effort Normal 09/28/24 08:45 Respiratory Depth Normal 09/28/24 08:45 Respiratory Pattern Normal 09/28/24 08:45 Blood Pressure 109/76 09/28/24 12:26 Blood Pressure Mean 87 09/28/24 12:20 Blood Pressure Position Sitting 09/28/24 12:20 Pulse Oximetry 94 09/28/24 12:26 Oxygen Delivery Method Room Air 09/28/24 11:10 Oxygen Flow Rate 0 09/28/24 11:10 Pain Level 4 09/28/24 12:26 Lab/Test Results Lab/Test Results: Laboratory Tests Range/Units 09/28/24 09/28/24 09:27 11:08 WBC (4.4-10.8) 10^3/uL 9.55 RBC (4.36-5.78) 10^6/uL 5.53 Hgb (13.5-17.5) g/dL 16.0 Hct (40.0-50.0) % 48.7 MCV (80-95) fL 88 MCH (27.0-33.0) pg 28.9 MCHC (32.0-36.0) % 32.9 RDW (11.8-14.1) % 13.6 Plt Count (130-400) 10^3/uL 219 MPV (8.0-11.0) fL 9.3 Immature Gran % % 0.6 Neutrophils % % 82.9 Lymphocytes % % 8.8 Monocytes % % 6.0 Eosinophils % % 1.5 Basophils % % 0.2 Nucleated RBC % (0.0-0.3) % 0.0 Absolute Neutrophils (1.2-6.7) 10^3/uL 7.92 H Absolute Lymphocytes (1.2-3.4) 10^3/uL 0.84 L Absolute Monocytes (0.1-0.8) 10^3/uL 0.57 Absolute Eosinophils (0.0-0.7) 10^3/uL 0.14 Absolute Basophils (0.0-0.2) 10^3/uL 0.02 Sodium (136-145) mmol/L 141 Potassium (3.5-5.1) mmol/L 4.1 Chloride (98-107) mmol/L 106 Carbon Dioxide (21.0-32.0) mmol/L 27.6 Anion Gap (3-11) mmol/L 7.4 BUN (7-18) mg/dL 16 Creatinine (0.70-1.30) mg/dL 1.2 Est GFR (CKD-EPI 2020) (mL/min/1.73m2) 60.00 Glucose (74-106) mg/dL 158 H Calcium (8.5-10.1) mg/dL 9.8 Magnesium (1.8-2.4) mg/dL 1.6 L Total Bilirubin (0.2-1.0) mg/dL 0.59 AST (15-37) U/L 16 ALT (16-63) U/L 29 Alkaline Phosphatase (46-116) U/L 86 Total Protein (6.4-8.2) g/dL 7.0 Albumin (3.4-5.0) g/dL 3.6 TSH (0.36-3.74) uIU/mL 0.37 Urine Color (Yellow) Yellow Urine Clarity (Clear) Clear Urine pH (5-8) 5.5 Ur Specific [place] (1.005-1.025) 1.010 Urine Protein (Neg-Trace) mg/dL Negative Urine Ketones (Negative) mg/dL Negative Urine Blood (Negative) Trace-intact H Urine Nitrite (Negative) Negative Urine Bilirubin (Negative) Negative Urine Urobilinogen (Up to 0.2) mg/dL 0.2 Ur Leukocyte Esterase (Negative) Negative Urine RBC (0-2) HPF 3-5 H Urine WBC (0-5) HPF 0-2 Ur Epithelial Cells (Negative) HPF Negative Urine Crystals (Negative) HPF Negative Urine Bacteria (Negative) HPF Rare Urine Casts (Negative) LPF Negative Urine Mucus (Negative) Negative Ur Culture Indicated? No Urine Glucose (Negative) mg/dL Negative Medical Decision Making Laboratory Studies Glucose 158. Imaging CT head, cervical spine, chest, abdomen, and pelvis, and right hip do not show acute abnormality. There is thickening in the colon and of the thyroid. Initial Assessment: 83-year-old male with a history of hypertension and hyperlipidemia presents after a fall with persistent headache and head pain, worse with movement. Physical exam shows mild right lower quadrant tenderness, right hip tenderness, cervical spine tenderness, and an antalgic gait. No current dizziness or lightheadedness. Differential Diagnosis: - Post-fall evaluation: Persistent headache and head pain, ambulatory with steady gait, no lightheadedness. Blood pressure on the low end of normal. Plan: Hold lisinopril, recheck blood pressure by primary care physician tomorrow, continue using cane, reevaluate in outpatient setting as needed. - Colon thickening: Noted on CT scan. Plan: Outpatient colonoscopy needed, referral to surgery placed. - Thyroid thickening: Observed on CT scan, consistent with known goiter, unchanged per family. - Hyperglycemia: Glucose level 158. Plan: Encourage magnesium supplementation at home. ED Course: - Diagnostic labs and CTs of the head, cervical spine, chest, abdomen, pelvis, and right hip ordered and reviewed, showing no acute abnormalities. - Blood pressure on the low end of normal, hold lisinopril, recheck blood pressure by primary care physician tomorrow. - Encourage magnesium supplementation at home. - Discharged home in stable condition with stable vitals. - Return precautions reviewed, patient and family expressed understanding. Final Assessment: Patient evaluated for post-fall symptoms with diagnostic labs and CTs showing no acute abnormalities. Blood pressure management adjusted, and follow-up for colon thickening and thyroid thickening arranged. Discharged in stable condition with instructions for outpatient follow-up. Clinical Impression: - Post-fall evaluation - Colon thickening - Thyroid thickening - Hyperglycemia Disposition: - Discharge: Patient discharged home in stable condition. - Follow-Up: Blood pressure recheck by primary care physician tomorrow, outpatient colonoscopy, referral to surgery, continue using cane, reevaluate in outpatient setting as needed. MDM Components Evaluation: - Number of Differential Diagnoses or Management Options: Post-fall evaluation, colon thickening, thyroid thickening, hyperglycemia. - Amount and Complexity of Data Reviewed: Diagnostic labs, CTs of head, cervical spine, chest, abdomen, pelvis, and right hip. - Risk of Complication and Morbidity or Mortality: Low risk with current management plan, follow-up for potential complications related to colon and thyroid thickening. Quality:SDOH Health Related Social Needs: No Data to Display PFSH All Active Problems (Updated 09/28/24 @ 12:15 by SHERON Bravo) Colon wall thickening (Acute) Contusion of hip (Acute) Head injury (Acute) Cervicalgia (Acute) Multinodular thyroid (Acute) Medication dose changed (Acute) Pressure in head (Acute) Anxiety (Chronic) Dermatophytosis (Chronic) BX-neg. fungal; + spongiotic process + esinophils Dream anxiety disorder (Acute) nightmares Essential hypertension (Chronic 07/18/13) Insomnia, unspecified (Chronic 05/25/17) Peptic reflux disease (Chronic) H.H. Dizziness (Acute) Sigmoid diverticulitis (Acute) Internal hemorrhoids (Acute) Bilateral sensorineural hearing loss (Acute) Medical History Fatigue Benign follicular tumor of thyroid gland (~05/2023) Thyroid nodule (4cm), right, ultrasound-guided fine needle aspiration. Findings consistent w/ benign follicular nodule Abnormal CT of the head Rash Decreased hearing Gastropathy Muscle tenderness Acute prostatitis Knee pain (10/01/15) Rib pain (07/09/05) Vitamin D deficiency (09/26/08) Lumbar pain Diverticulosis of colon without diverticulitis SIGMOID (DR. ORQUIDEA MICHAEL) 12/29/11 Anal fissure Chest pain Intestinal obstruction Meralgia paresthetica Vertigo Discharge planning issues DVT prophylaxis Bowel habit changes Hematuria unspecified renal cysts per CT; s/p cysto Acute prostatitis elevated PSA-now normalized Chest pain neg MPI 06/16 Anemia 07/09/96 Rib pain 07/09/05 after episode w/bull Vitamin D deficiency 09/26/08 Cataract 02/26/15 Knee pain 10/01/15 Pneumonia due to infectious organism 08/31/17 unspecified unilaterality, unspecified part of lung Surgical History H/O colonoscopy (~07/2019) H/O rectal sphincterotomy (~07/2019) Status post inguinal hernia repair History of appendectomy S/P inguinal hernia repair left Repair of inguinal hernia LEFT Family History Mother , 93 Essential hypertension Father , 88 Heart disease Myocardial infarction Sister Breast cancer Paternal Grandfather Stroke Maternal Grandmother , OLD AGE at age 85. No problems noted. Paternal Grandmother Stroke Son No problems noted. Son No problems noted. Daughter No problems noted. Daughter No problems noted. Daughter No problems noted. Daughter No problems noted. Social History Smoking/Tobacco Use Status: Never Second Hand Exposure: No Smoking risk assessment performed?: Yes Alcohol Intake: current Alcohol Intake frequency: holidays/special occasions only Alcohol type: hard liquor Drug use: Current Sobriety Caregiver/Support person: Yes Household members: spouse Housing: house Communication Needs: Hard of Hearing Do you need help understanding health information?: Always Pets and animals: No Sexually active: Yes Do you think of yourself as: straight/heterosexual Current gender identity: male What is your relationship status?: How often do you talk on the phone with friends or family?: once per week How often do you get together with friends or relatives?: once per week How often do you attend zoroastrian or druze services?: decline to answer Do you belong to any clubs or organized social groups?: decline to answer Panel score (0-1 are the most socially isolated patients): 1 What type of physical activity do you participate in: walking Duration: 45-60 minutes/day Frequency: 5-6 times per week Vilma/Bahai: Taoism Seatbelt use: always Helmet use: Yes Helmet use: sometimes Drive intox or ride w/intox drop hammer pile driver operator: No Do you feel safe at home: Yes Do you feel safe in your relationship?: Yes
== END 2024-09-28 12:40 | disposition home or self-care (01) ==
PROVIDERS: Emergency Provider Physician Assistant; PCP Family Medicine
DX: S09.8XXA Other specified injuries of head, initial encounter (principal); S70.01XA Contusion of right hip, initial encounter; E04.9 Nontoxic goiter, unspecified; K63.89 Other specified diseases of intestine; I10 Essential (primary) hypertension; E78.5 Hyperlipidemia, unspecified; W18.39XA Other fall on same level, initial encounter; Y93.01 Activity, walking, marching and hiking; Y92.512 Supermarket, store or market as the place of occurrence of the external cause
CPT/HCPCS: 36415; 70496; 70498; 72125; 74177; 80053; 93005; 96361; 96374; 99285; 71260; 73502; 81003; 81015; 83735; 84443; 85025; 93010; J0131; J3490; Q9967

== ENCOUNTER → 2024-11-02 08:27 | Outpatient (BNVA) | payer MEDICARE, OTHER, SELFPAY | PROVIDERS: PCP Family Medicine; Referring Provider Family Medicine; Visit Provider Surgery | DX: K63.9 Disease of intestine, unspecified (principal) | CPT/HCPCS: 99214 ==

== ENCOUNTER 2024-11-21 06:54 | Day surgery (SDC) | payer MEDICARE, OTHER, SELFPAY ==
--- NOTE | 2024-11-20 18:15 | W.PM.DSUDISC ---
Date of service: 11/21/24 Discharge Plan Disposition Patient Disposition: Home Condition: Good Discharge Details Reason For Visit: diagnostic colonoscopy Attending Provider: Osito Dawn Primary Care Provider: Delfina Lopes Home Meds and New Rx's Prescriptions: Continued trazodone 100 mg tablet 100 mg PO QHS Qty: 90 4RF citalopram 20 mg tablet 20 mg PO DAILY Qty: 90 11RF Rx Instructions: note dose reduction lisinopril 5 mg tablet 5 mg PO DAILY Qty: 90 3RF omeprazole 20 mg capsule,delayed release(DR/EC) 20 mg PO DAILY Qty: 90 3RF Rx Instructions: dr aware; please fill sennosides [Senokot] 1 TAB tablet 2 tab PO DAILY Discontinued polyethylene glycol 3350 17 gram/dose powder 238 g PO ONCE Qty: 238 0RF Rx Instructions: take per colonoscopy instructions bisacodyl [Dulcolax (bisacodyl)] 5 mg tablet,delayed release (DR/EC) 5 mg PO ONCE Qty: 4 0RF Rx Instructions: take per colonoscopy instructions Discharge Instructions Instructions: Hemorrhoids, Diverticulosis Additional Instructions: Pat, it is great seeing you today, I hope you are comfortable through the procedure and that you feel well later today. Things went very smoothly. You do have some internal hemorrhoids, which may account for some of the bleeding that you notice from time to time. I generally recommend very basic approach to these, using things like a high-fiber diet, lots of water through the course of the day, and trying your best to avoid constipation. There is no harm in using a laxative from time to time if you do feel constipated. As we talked about beforehand, there are more definitive procedures for hemorrhoids, but those can be quite uncomfortable, and I usually recommend trying to exhaust nonoperative management, and [id number] medications if needed to help with the symptoms before doing anything in the operating room. I did find, and remove 1 polyp today, and that will be sent off for testing. It was small, and I do not suspect this is any issue. With regards to the abnormal CT scan, I looked all over that area. There are some folds of the colon that are quite obvious on the colonoscopy, and I suspect that is what was observed during the CT scan. They do not appear dangerous to me, but I did do some biopsies of these just to be safe. Those results will take about a week or 2, along with the polyp report, and once I have that information I will be in touch. If you need anything else in the meantime, please do not hesitate to ask. 1. If tolerated, consume a soft, low fiber diet for 1-2 days. [address] Do not drive, drink alcohol, operate machinery, make critical decisions, or do activities that require coordination or balance for 24 hours. 3. Because air was put into your colon during the procedure, expelling air from your rectum (passing gas or farting) is normal. 4. You may not have a bowel movement for 1-3 days because of the colonoscopy prep. This is normal. 5. Go directly to the emergency room if you notice any of the following: Develop chills (warm to touch), or if you have a thermometer and your temperature is above 101 Difficulty breathing or difficultly swallowing Persistent vomiting Severe abdominal pain, other than gas cramps Severe chest pain Black, tarry stools Any bleeding ? exceeding one tablespoon 6. Call your physician if the site where your intravenous was started becomes red, swollen, painful, and warm to touch. 7. Your physician has reviewed your pre-procedure medications. Please continue to take those medications as previously ordered. You will be given specific information/education regarding any changes to your medications before leaving. Stand Alone Forms: Anesthesia Discharge Ashley Moralez (DSU) Activity:: Activity as Tolerated Diet:: As Tolerated Discharge Orders Discharge Orders: Discharge Order (Routine); Ordered 11/20/24 Ordered By: Osito Dawn DS: Diagnosis Discharge Diagnosis (1) Abnormal computed tomography of cecum and terminal ileum: Status: Acute Asessment and Plan: Follow-up on polypectomy and biopsy results
--- NOTE | 2024-11-20 18:18 | W.COLOREPORT ---
Date of service: 11/21/24 Time of Service: 09:01 Colonoscopy Report Date of procedure: 11/21/24 Pre-op diagnosis general: diagnostic colonoscopy Post-op diagnosis procedure note: other (Melanosis coli, 0.25 cm pedunculated polyp at 20 cm, diverticulosis, internal hemorrhoids) Procedure: colonoscopy Surgeon: Osito Dawn Anesthesia Type: General:No Airway Estimated blood loss (mL): 5 Pathology: other (0.25 cm pedunculated polyp at 20 cm, cecal biopsies) Complications: None Disposition: same day Indications: Magalie is an 84 year old manw how underwent CT scan after a fall. That study suggested an abnormality of the cecum and follow up colonoscopy was recommended. Prep: Miralax/Dulcolax Procedure Start Time: 08:19 Procedure End Time: 08:38 Retraction Time: 7 Findings: Internal hemorrhoids, 0.25 cm pedunculated polyp at 20 cm, melanosis coli Procedure Description: After the induction of anesthesia, and with the patient in left lateral decubitus position, I began by performing an external anorectal exam.? Perineum and skin were normal, as was the anal verge.? There was no evidence of external hemorrhoids.? Next, I performed a digital rectal exam.? I did not appreciate any abnormal findings.? Next, I advanced a colonoscope into the rectal vault.? I performed retroflexion.? There are internal hemorrhoids.? Using insufflation, I then advanced the colonoscope beyond the rectal folds and into the sigmoid colon before advancing towards the cecum.? Around 20 cm from the anal verge was a 0.25 cm slightly pedunculated polyp. This was removed with cold snare polypectomy. Excision was complete. There was minimal bleeding.? The scope was noted to be in the cecum by identification of the ileocecal valve and appendiceal orifice.? 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 Great care was taken to ensure that the cecum and proximal ascending colon were all irrigated clean. There was some prominent fold of the cecum just distal to the ileocecal valve, on the contralateral side. This seems most consistent with the area that was seen on the CT scan. Mucosa itself actually appears quite normal. There is no friability, or any obvious suggestions of pathology. To be safe, however, I did perform some cold forceps biopsies of this area. These were sent as a single specimen. There is minimal bleeding from the biopsy sites. I then began withdrawing the colonoscope using repeated irrigation as necessary for full evaluation of the colonic mucosa. ?Once the scope was withdrawn to the level of the rectum, great care was taken to examine portions of the rectal folds.? Finally, the scope was withdrawn and the patient was brought to the same-day surgery recovery unit as the anesthetic wore off. ?The findings and instructions were shared with the patient prior to discharge. [place] Bowel Prep [place] Bowel Prep Right Colon: 3 Left Colon: 3 Transverse Colon: 3 Total Score: 9
[2024-11-21 07:00] VITALS: BP 152/94; PULSE 88; RESP 20; TEMP 36.6; O2SAT 95
--- NOTE | 2024-11-21 07:38 | W.ANESPRE ---
General Info Date of Service Date Performed: 11/21/24 Height: 5 ft 5 in Weight: 78.528 kg Body Mass Index (BMI): 28.8 Surgical Procedure: Operation Date: 11/21/24 08:20 Proposed Procedure Side Surgeon dottie Dawn MD Meds Allergies and Home Medications Allergies Allergy/AdvReac Type Severity Reaction Status Date / Time ciprofloxacin Allergy Intermediate Unknown Verified 11/21/24 07:25 cephalexin Allergy Mild UNKNOWN Verified 11/21/24 07:25 ciclopirox Allergy Mild UNKNOWN Verified 11/21/24 07:25 methylprednisolone Allergy Mild SKIN RASH Verified 11/21/24 07:25 oxaprozin Allergy Mild UNKNOWN Verified 11/21/24 07:25 phenazopyridine Allergy Mild UNKNOWN Verified 11/21/24 07:25 tamsulosin Allergy Mild UNKNOWN Verified 11/21/24 07:25 hydrocortisone Allergy Unknown SKIN RASH Verified 11/21/24 07:25 latex Allergy Unknown UNKNOWN Verified 11/21/24 07:25 Beta-Blockers AdvReac Unknown DEPRESSION Verified 11/21/24 07:25 (Beta-Adrenergic Bloc lanolin AdvReac Unknown Skin Rash Verified 11/21/24 07:25 tetracycline AdvReac Unknown YEAST Verified 11/21/24 07:25 INFECTIONS fluconazole AdvReac blisters Verified 11/21/24 07:25 Home Medication ?Medication ?Instructions ?Recorded sennosides 8.6 mg tablet (Senokot) 2 tab PO DAILY 12/05/13 citalopram 20 mg tablet 20 mg PO DAILY #90 tab-caps 05/16/24 lisinopril 5 mg tablet 5 mg PO DAILY #90 tab-caps 05/16/24 omeprazole 20 mg capsule,delayed 20 mg PO DAILY #90 tabs 05/16/24 release trazodone 100 mg tablet 100 mg PO QHS #90 tabs 10/06/24 Current Visit Medications: Current Medications Generic Name Dose Route Start Last Admin Trade Name Freq PRN Reason Stop Dose Admin Ringer's Solution 1,000 mls @ 80 mls/hr 11/21/24 06:00 IV 11/21/24 23:59 INFUSION SALVADOR IV Miscellaneous Supplies 1 each 11/21/24 06:00 Iv Access IV 11/21/24 23:59 DIRECTED SALVADOR Sodium Chloride 0 ml 11/21/24 06:00 Normal Saline Flush 10 Ml Syr IV 11/21/24 23:59 PRN PRN Sodium Chloride 0 ml 11/21/24 06:00 Normal Saline 10 Ml Vial IJ 11/21/24 23:59 DIRECTED PRN Sterile Water 0 ml 11/21/24 06:00 Water,Injection,Sterile 10 Ml Vial IJ 11/21/24 23:59 DIRECTED PRN PFSH Active Problems Active Problems: Problem Status Onset Code Abnormal computed tomography of cecum and terminal ileum Acute R93.3 Cervicalgia Acute M54.2 Multinodular thyroid Acute E04.2 Medication dose changed Acute Z79.899 Pressure in head Acute R51.9 Bilateral sensorineural hearing loss Acute H90.3 Internal hemorrhoids Acute K64.8 Sigmoid diverticulitis Acute K57.32 Dizziness Acute R42 Peptic reflux disease Chronic K21.9 Insomnia, unspecified Chronic 05/25/17 G47.00 Essential hypertension Chronic 07/18/13 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 Findings consistent w/ benign follicular nodule Abnormal CT of the head Rash Decreased hearing Gastropathy Muscle tenderness Acute prostatitis Knee pain (10/01/15) Rib pain (07/09/05) Vitamin D deficiency (09/26/08) Lumbar pain Diverticulosis of colon without diverticulitis SIGMOID (DR. ORQUIDEA MICHAEL) 12/29/11 Anal fissure Chest pain Per pt. states this was a long time ago, and has had no issues recently Intestinal obstruction Meralgia paresthetica Vertigo Discharge planning issues DVT prophylaxis Bowel habit changes Hematuria unspecified renal cysts per CT; s/p cysto Acute prostatitis elevated PSA-now normalized Chest pain neg MPI 06/16 Anemia 07/09/96 Rib pain 07/09/05 after episode w/bull Vitamin D deficiency 09/26/08 Cataract 02/26/15 Knee pain 10/01/15 Pneumonia due to infectious organism 08/31/17 unspecified unilaterality, unspecified part of lung Surgical History Surgical History History of cataract extraction H/O colonoscopy (~07/2019) H/O rectal sphincterotomy (~07/2019) Status post inguinal hernia repair History of appendectomy S/P inguinal hernia repair left Repair of inguinal hernia LEFT Tobacco Smoking/Tobacco Use Status: Never Passive smoking exposure: Yes Second hand exposure: No Alcohol Alcohol Intake: current Alcohol intake frequency: holidays/special occasions only Alcohol type: hard liquor Substance Use Substance use: Never Substance use type: does not use Vital Signs and Lab Results Lab Results Blood Type / Crossmatch: No Data to Display Complete Blood Count: No Data to Display Complete Metabolic Panel: No Data to Display Liver Function Panel: No Data to Display Coagulation Panel: No Data to Display Cardiac Panel: No Data to Display Arterial Blood Gas: No Data to Display Venous Blood Gas: No Data to Display Pancreas Panel: No Data to Display Thyroid Panel: No Data to Display Infectious Disease: No Data to Display Blood Cultures: No Data to Display Toxicology Panel: No Data to Display Anesthesia Assessment and Plan Anesthesia History Personal History: Delayed Emergence Family History: No Family History of Anesthesia Complications Exercise Tolerance Exercise Tolerance: Metabolic Equivalents>4 Pertinent Negatives Pertinent Negatives: No Symptoms of GERD Cardiac & Pulmonary Exam Cardiac Exam: Normal S1/S2 Heart Sounds and Heart Murmur Present Pulmonary Exam: Clear Bilateral Breath Sounds Implantable Cardiac Device Does patient have a Pacemaker or an ICD?: No Airway Exam Known Difficult Airway: No Mallampati Class: 2 Mouth Opening: Normal (> 3cm) Thyromental Distance: Greater than 3 cm Neck Range of Motion: Full ROM Neck Circumference: Normal Teeth Condition: Removable Dentures/Plates Upper and Removable Dentures/Plates Lower ASA Classification ASA Score: ASA 2 Emergency Case?: No NPO Status NPO Status: NPO Clears >2 hours, Solids >8 hours Anesthesia Plan Resuscitation Status: Full Code Anesthesia Technique: General Anesthesia Airway Planned: Natural Airway Monitors Used: Standard Monitors
[2024-11-21 07:41] VITALS: BMI 28.8
[2024-11-21] MEDS: Lactated Ringers 1,000 ML 80 ML IV (07:55)
--- NOTE | 2024-11-21 08:23 | BOWEL_PTH ---
PATIENT: Brian Siddiqui LOC: [facility] U#:[id number] AGE/SX: 84/M ROOM: RE11/21/[address]: Osito Dawn MD : 1940 BED: DIS: 11/21/2024 SPEC #: [id number] RECD: 11/21/24 12:54 STATUS: RICHARDPeter REDony #: [id number] LIVIA: 11/21/24 08:[address]: Osito Dawn DEPT: Surgical Specimen RECD BY: Gloria Lopez ENTERED: 11/21/24 12:56 SP TYPE: Bowel OTHR DR: Delfina Lopes MD, DC Tissues: 1 - BIOPSY BOWEL 2 - BIOPSY BOWEL Procedures: GROSS AND MICRO LEVEL 4 Comments: [id number]
[2024-11-21 08:45] VITALS: BP 104/76; PULSE 79; RESP 16; TEMP 36.4; O2SAT 94
[2024-11-21 09:27] VITALS: BP 128/83; PULSE 78; RESP 19; TEMP 36.5; O2SAT 93
--- NOTE | 2024-11-21 10:01 | W.ANESPOSTOP ---
Postoperative Evaluation Date, Time and Location Date Performed: 11/21/24 Time Performed: 09:00 Patient Location: Day Surgery Unit Vital Signs Most Recent Imported Vital Signs: Most Recent Vital Signs Temp Pulse Resp BP Pulse Ox 36.5 C 78 19 128/83 93 11/21/24 09:27 11/21/24 09:27 11/21/24 09:27 11/21/24 09:27 11/21/24 09:27 Pain Score Most Recent Pain Score: Most Recent Pain Score Pain Level 0 11/21/24 09:27 Assessment Mental Status: Awake (Alert & Oriented to Patient Baseline) Airway and Respiratory Function: Patent airway with normal (patient baseline) respiratory exam Cardiovascular Function: Hemodynamically Stable Hydration Status: Adequately Hydrated Nausea & Vomiting: No Nausea or Vomiting Pain: Pt. Denies Any Pain Peripheral Nerve Block: Patient did not receive a nerve block
== END 2024-11-21 09:44 | disposition home or self-care (01) ==
LOC: SUR 06:54
PROVIDERS: PCP Family Medicine; Visit Provider Surgery
PROC: 0DJD8ZZ Inspection of Lower Intestinal Tract, Via Natural or Artificial Opening Endoscopic (ICD-10-PCS; CPT 45378; principal; 2024-11-21 08:15)
DX: R93.3 Abnormal findings on diagnostic imaging of other parts of digestive tract (principal); D12.5 Benign neoplasm of sigmoid colon; K64.8 Other hemorrhoids; K57.30 Diverticulosis of large intestine without perforation or abscess without bleeding; K63.89 Other specified diseases of intestine
CPT/HCPCS: 45385; 88305; J2704